=== PATIENT | female | born 1950 | race American Indian/Alaskan Native ===

== ENCOUNTER 2016-12-11 08:17 | Inpatient (IN) | payer MEDICARE ==
[2016-12-11] MEDS ORDERED: NACL 0.9% 1000 ML IV ONE (08:26)
[2016-12-11 09:03] LABS: Basophils % (Auto) 0.2 % (0.0-1.8); Eosinophils % (Auto) 0.4 % (0.0-4.3); Hematocrit 31.9 % (30.3-42.9); Hemoglobin 10.2 gm/dl (10.1-14.3); Mean Corpuscular HGB Conc 32 % (30-34); Mean Corpuscular Hemoglobin 30 pg (28-32); Mean Corpuscular Volume 94 fl (79-97); Platelet Count 224 K/mm3 (140-440); Red Blood Count 3.41 M/mm3 (3.65-5.03); Red Cell Distribution Width 15.5 % (13.2-15.2); White Blood Count 6.9 K/mm3 (4.5-11.0)
--- NOTE | 2016-12-11 09:06 | XRay Report ---
Single view chest: History: Shortness of breath. Findings: Borderline cardiomegaly. Trachea is midline. Pulmonary venous congestion. Bibasilar atelectasis/infiltrates. Normal CP angles. Impression: Probable early CHF.
[2016-12-11 09:22] LABS: Albumin 2.9 g/dL (3.9-5); Albumin/Globulin Ratio 0.8 %; Anion Gap 21 mmol/L; B-Hydroxybutyrate 1.1 mg/dL (0.2-2.8); BUN/Creatinine Ratio 14.44; Bilirubin,Indirect 1.4 mg/dL; Bilirubin,Total 7.4 mg/dL (0.1-1.2); Blood Urea Nitrogen 13 mg/dL (7-17); Calcium 8.8 mg/dL (8.4-10.2); Carbon Dioxide 19 mmol/L (22-30); Chloride 91.4 mmol/L (98-107); Potassium 4.4 mmol/L (3.6-5.0); Sodium 127 mmol/L (137-145); Total Protein 6.4 g/dL (6.3-8.2)
[2016-12-11 09:28] LABS: Glucose 623 mg/dL (65-100)
--- NOTE | 2016-12-11 09:54 | Emergency Department Report ---
HPI - General Time Seen by Provider: 12/11/16 08:24 - HPI HPI: Chief complaint: Altered mental status elevated blood sugar HPI: Patient is a 66-year-old female who was unable to unlock her door to go out to breakfast with her friend. Patient is an insulin-dependent diabetic and has been "a little dry "the last several days according to her friend. Patient states she drinks every other night and last night she had a pint of gin. Patient states she's never had hepatitis. Patient denies history of withdrawal but states occasionally she will get shaky when she doesn't drink. Patient denies polyuria but does complain of thirst. Patient denies chest pain, nausea , vomiting, diarrhea, abdominal pain, dysuria. Mode of arrival: EMS Source: Patient Began: Sometime during the night Duration: Unclear Context: Friend states when they got into her apartment there was a pot on the stove to heat on as well as contents in her purse scattered throughout the apartment and generalized disarray. Quality: Denies pain Severity: 0 out of 10 Improved with: Nothing Worsened with: Nothing Associated signs and symptoms: See above ED Past Medical Hx - Past Medical History Hx Hypertension: Yes Hx Psychiatric Treatment: Yes (depression) - Surgical History Additional Surgical History: hysterectomy. sweat gland surgery - Social History Smoking Status: Current Every Day Smoker Substance Use Type: Alcohol - Medications Home Medications: Home Medications Medication Instructions Recorded Confirmed Last Taken Type HYDROcodone/APAP 5-325 [[place] 1 - 2 each PO Q6HR PRN #14 tablet 04/28/15 Unknown Rx 5-325 mg TAB] predniSONE [Deltasone] 50 mg PO QDAY #5 tab 04/28/15 Unknown Rx ED Review of Systems ROS: Stated complaint: AMS/HYPERCOLYCEMIA Other details as noted in HPI Comment: Unobtainable due to pts medical conditions Physical Exam - Physical Exam Physical Exam: GENERAL: The patient is well-developed well-nourished . Patient has difficulty speaking secondary to missing lower teeth. HEENT: Normocephalic. Atraumatic. Extraocular motions are intact. Patient has moist mucous membranes. NECK: Supple. No meningitic signs are noted. There is no adenopathy noted. CHEST/LUNGS: Clear to auscultation. There is no respiratory distress noted. HEART/CARDIOVASCULAR: Regular. There is no tachycardia. There is no gallop rub or murmur. ABDOMEN: Abdomen is soft, nontender. Patient has normal bowel sounds. There is no abdominal distention. SKIN: There is no rash. There is no edema. There is no diaphoresis. NEURO: The patient is awake, alert, and oriented to self and situation but not time. The patient is cooperative. The patient has no focal neurologic deficits. MUSCULOSKELETAL: There is no tenderness or deformity. There is no limitation range of motion. There is no evidence of acute injury. ED Course - Reevaluation(s) Reevaluation #1: 12/11/16 10:19 Patient given 2 L of normal saline and 10 units of regular insulin. Discussed with admitting hospitalist who requests patient be placed on an insulin drip. Fluids were stopped secondary to questionable early CHF on patient's chest x- ray. Patient denies any shortness of breath. ED Medical Decision Making - Lab Data Result diagrams: 12/11/16 08:45 12/11/16 08:45 - EKG Data -: EKG Interpreted by Ok EKG shows normal: sinus rhythm Rate: normal (94) - EKG Data When compared to previous EKG there are: previous EKG unavailable Interpretation: nonspecific ST-T wave fely - Radiology Data Radiology results: report reviewed (CT head shows acute left maxillary sinusitis ) Critical care attestation.: If time is entered above; I have spent that time in minutes in the direct care of this critically ill patient, excluding procedure time. ED Disposition Clinical Impression: Hyperglycemia due to type 1 diabetes mellitus, Hepatitis, Alcohol abuse Altered mental status Qualifiers: Altered mental status type: transient alteration of awareness Qualified Code(s) : R40.4 - Transient alteration of awareness Maxillary sinusitis, acute Qualifiers: Recurrence: not specified as recurrent Qualified Code(s): J01.00 - Acute maxillary sinusitis, unspecified Disposition: OP ADMITTED IP TO THIS HOSP Is pt being admited?: Yes Does the pt Need Aspirin: No Condition: Stable Instructions: Diabetes Mellitus Type 2 in Adults (ED) Time of Disposition: 10:13 (admit to the hospitalist)
--- NOTE | 2016-12-11 10:12 | Cat Scan Report ---
CT scan of head without contrast: History: AMS. Findings: Ventricles are normal in size and midline in location. No evidence of acute ischemia, hemorrhage or mass. No extra axial fluid collection. Normal brainstem and cerebellum. Moderate volume loss. Air fluid level in left maxillary sinus. Impression: No acute intracranial abnormality. Acute left maxillary sinusitis.
[2016-12-11 10:44] LABS: Anion Gap 22 mmol/L; BUN/Creatinine Ratio 17.14; Blood Urea Nitrogen 12 mg/dL (7-17); Calcium 8.7 mg/dL (8.4-10.2); Carbon Dioxide 15 mmol/L (22-30); Chloride 95.6 mmol/L (98-107); Sodium 129 mmol/L (137-145)
[2016-12-11 10:49] LABS: Glucose 538 mg/dL (65-100)
[2016-12-11] MEDS ORDERED: NovoLIN R 100 UNITS in NACL 0.9% 99 ML IV SCH (11:00)
[2016-12-11 11:05] LABS: Phosphorous 3.7 mg/dL (2.5-4.5)
[2016-12-11] MEDS ORDERED: NACL ONE (11:13)
--- NOTE | 2016-12-11 12:31 | Cat Scan Report ---
CT scan of abdomen and pelvis with IV contrast: Compared to 12/27/14. History: Abdominal pain. Findings: Left lower lobe partial or segmental atelectasis or pneumonitis. No pleural or pericardial effusion. Intrahepatic duct dilatation with dilated common bile duct measuring up to 2 cm in the head of the pancreas. Dilated gallbladder with pericholecystic fluid and 1.2 cm calculus in gallbladder. Dilated pancreatic duct measuring up to 1.5 cm. Pseudocyst in the region of the head of pancreas if present cannot be entirely excluded. No peripancreatic stranding. Normal adrenals. Cyst in the left kidney measuring 2 cm. No calculi in the kidney parenchyma. No evidence of hydronephrosis. Decompressed urinary bladder with catheter in the bladder. No free intraperitoneal fluid or air. No evidence of adenopathy. Atherosclerotic calcified abdominal aorta without aneurysm. Gaseous colon with small volume stool in colon. Diverticulosis sigmoid colon. Normal appendix. Impression: Dilated pancreatic duct with cystic areas near the region of the pancreas which may be dilated pancreatic duct or pseudocyst. Dilated common bile duct with enlarged gallbladder. Single large calculus measuring 1.0 cm in diameter within the gallbladder with pericholecystic fluid. Diverticulosis sigmoid colon.
[2016-12-11] MEDS ORDERED: ATIVAN IV PRN (12:42)
--- NOTE | 2016-12-11 13:08 | History and Physical Report ---
History of Present Illness Date of examination: 12/11/16 Date of admission: 12/11/16 Chief complaint: Altered mental status from hyperglycemic hyperosmolar osmolar nonketotic syndrome History of present illness: Patient is a 66-year-old lady who has a history of diabetes mellitus hypertension alcohol and tobacco use disorder was found by EMS to have alteration in mental status has a friend who lives a few doors away from a apartment came to take her out for breakfast. They are chatted till 8 PM the previous night. However when her friend called, she found to have alteration in her mental status. Unable to open the door. EMS was called. They'll was forced and found the patient confused. Blood sugar at the scene was over 600. Patient was brought to the emergency department. The patient's friend who brought her to the emergency department stated there has no fever, no nausea no vomiting. She was very lucid the night before. However in the emergency department patient was found to be altered in her mental status. Ph was 7.300. Blood sugar was 589. Patient was commenced on normal saline and insulin drip. Admission was therefore requested. Past History Past Medical History: diabetes, hypertension Social history: smoking (smokes about a pack was elevated today for many years) , alcohol abuse (drinks alcohol) Family history: CAD, hypertension Medications and Allergies Allergies Allergy/AdvReac Type Severity Reaction Status Date / Time tramadol Allergy Rash Verified 04/28/15 16:55 Home Medications Medication Instructions Recorded Confirmed Last Taken Type No Known Home Medications [No 12/11/16 12/11/16 Unknown History Reported Home Medications] Active Meds: Active Medications Dextrose (D50w (25gm)) 0 ml IV PRN PRN PRN Reason: Hypoglycemia Enoxaparin Sodium (Lovenox) 40 mg SUB-Q QDAY ALEXANDRU Insulin Human Regular 100 (units/ Sodium Chloride) 100 mls @ 1 mls/hr IV TITR ALEXANDRU; 1 UNITS/HR PRN Reason: Protocol Lorazepam (Ativan) 4 mg IV Q15MIN PRN PRN Reason: CIWA-Ar >25 Stop: 12/16/16 12:43 Review of Systems ROS unobtainable: due to mental status Exam - Constitutional Vitals: Temp Pulse Resp BP Pulse Ox 98.6 F 80 17 141/83 97 12/11/16 08:30 12/11/16 11:30 12/11/16 11:30 12/11/16 11:30 12/11/16 11:30 General appearance: Present: no acute distress, well-nourished - EENT Eyes: Present: PERRL - Neck Neck: Present: supple, normal ROM - Respiratory Respiratory effort: normal Respiratory: bilateral: CTA - Cardiovascular Heart Sounds: Present: S1 & S2. Absent: rub, click - Extremities Extremities: pulses symmetrical, No edema Peripheral Pulses: within normal limits - Abdominal General gastrointestinal: Present: soft, non-tender, non-distended, normal bowel sounds Female genitourinary: Present: normal - Integumentary Integumentary: Present: clear, warm, dry - Musculoskeletal Musculoskeletal: gait normal, strength equal bilaterally - Psychiatric Psychiatric: appropriate mood/affect, intact judgment & insight - Neurologic Neurologic: CNII-XII intact, moves all extremities Results - Labs CBC & Chem 7: 12/14/16 05:44 12/12/16 10:19 Labs: Abnormal lab results 12/11/16 12/11/16 12/11/16 Range/Units 08:23 08:45 08:45 RBC 3.41 L (3.65-5.03) M/mm3 RDW 15.5 H (13.2-15.2) % [place] % (Auto) 10.7 H (0.0-7.3) % Lymph # 1.0 L (1.2-5.4) K/mm3 Seg Neutrophils % 74.3 H (40.0-70.0) % VBG pH (7.320-7.420) Sodium 127 L (137-145) mmol/L Chloride 91.4 L (98-107) mmol/L Carbon Dioxide 19 L (22-30) mmol/L Glucose 623 H* (65-100) mg/dL POC Glucose > 500 H (70-105) Total Bilirubin (0.1-1.2) mg/dL Direct Bilirubin (0-0.2) mg/dL AST (5-40) units/L ALT (7-56) units/L Alkaline Phosphatase (35-129) units/L Albumin (3.9-5) g/dL 12/11/16 12/11/16 12/11/16 Range/Units 08:45 08:45 10:17 RBC (3.65-5.03) M/mm3 RDW (13.2-15.2) % [place] % (Auto) (0.0-7.3) % Lymph # (1.2-5.4) K/mm3 Seg Neutrophils % (40.0-70.0) % VBG pH 7.300 L (7.320-7.420) Sodium 129 L (137-145) mmol/L Chloride 95.6 L (98-107) mmol/L Carbon Dioxide 15 L (22-30) mmol/L Glucose 538 H* (65-100) mg/dL POC Glucose (70-105) Total Bilirubin 7.4 H (0.1-1.2) mg/dL Direct Bilirubin 6.0 H (0-0.2) mg/dL AST 50 H (5-40) units/L ALT 76 H (7-56) units/L Alkaline Phosphatase 694 H (35-129) units/L Albumin 2.9 L (3.9-5) g/dL Assessment and Plan 1. Metabolic encephalopathy: Secondary to hyperglycemic hyperosmolar nonketotic state.: Commence patient on normal saline infusion. Insulin drip. Admits to ICU. 2. Hyperbilirubinemia. With marked increase in alkaline phosphatase. Obtain liver function test. CT scan of the abdomen and pelvis to rule out any obstructive condition. Of note the patient is jaundiced. 3. Metabolic acidosis 4. Alcohol abuse 5. Tobacco use disorder 6. Leukocytosis 7. DVT prophylaxis with Lovenox and GI with Protonix
[2016-12-11 13:12] LABS: Anion Gap 21 mmol/L; BUN/Creatinine Ratio 15.71; Blood Urea Nitrogen 11 mg/dL (7-17); Calcium 8.6 mg/dL (8.4-10.2); Carbon Dioxide 17 mmol/L (22-30); Glucose 310 mg/dL (65-100); Potassium 3.4 mmol/L (3.6-5.0); Sodium 133 mmol/L (137-145)
[2016-12-11] MEDS ORDERED: NOVOLOG SUB-Q ONE ×2 (14:11→15:29)
--- NOTE | 2016-12-11 14:12 | Admit Criteria Form ---
Admission Criteria Documentation: DIABETES Clinical Indications for Admission to Inpatient Care (Place 'X' for any and all applicable criteria): Admission is indicated by presence of ALL (if I & II) or ANY ONE (if III or IV) of the following (1)(2)(3)(4): [X ]I. Diabetes is uncontrolled as indicated by ANY ONE of the following: [ ]a) Diabetic ketoacidosis as indicated by ALL of the following (8): [ ]i) Hyperglycemia (eg, plasma glucose greater than 200 mg/ dL (11.1 mmol/L)) [ ]ii) Acidosis (eg, arterial pH less than 7.30, serum bicarbonate level less than 15 mEq/L (mmol/L)) [ ]iii) Moderate ketonuria or ketonemia [ ]b) Hyperglycemic hyperosmolar state as indicated by ALL of the following(9)(10): [ ]i) Neurologic dysfunction (eg, stupor, coma, hemiparesis , seizure)(13) [ ]ii) Plasma glucose greater than 600 mg/dL (33.3 mmol/L) [ ]iii) Serum osmolality greater than 320 mOsm/kg (mmol/kg) [X ]c) Severe signs or symptoms secondary to hyperglycemia indicated by ANY ONE of the following: [X ]i) Altered mental status(10) [ ]ii) Significant hypovolemia or dehydration [ ]iii) Intractable nausea or vomiting [ ]iv) Unexplained fever or severe infection [X ]v) Severe electrolyte abnormality (eg, hypokalemia, hyperkalemia, hypernatremia) [ X]II. Management at other levels of care (Also use Diabetes: Observation Care as appropriate) is not feasible because of ANY ONE of the following: [ ]a) Condition was not adequately corrected with treatment at other levels of care. [X ]b) Treatment at other levels of care is not appropriate because of condition severity (eg, hyperosmolar coma). [ ]III. Contraindications and/or Inappropriate clinical situations for Observational Care in patients with Diabetes, when ANY ONE of the following is required: [ ]a) Patient require specific diagnostic workup or therapeutic intervention 22 [ ]b) Patient with abnormal vital signs or altered mental status 23 [X ]IV. General contraindications and/or Inappropriate clinical situations for Observational Care in patients with Diabetes, when ANY ONE of the following is required: [ X]a) Prediction of prolongation of LOS based on ANY ONE of the following may be considered as a contraindication for observational care 2, 3, 4, 5, 6, 7, 8, 9, 10, 11 [X ]i) Age > 65 yrs. [ ]ii) Patient arriving by ambulance [ ]iii) Patient with high acuity [ ]iv) Patient requiring vital sign monitoring [ ]v) Patient on IV medication [ ]b) Systolic blood pressures 180mmHg 3,12 [ ]c) Patient with altered mental status including delirium and other alteration of consciousness, (3) [ ]d) Patient whose discharge disposition will be to a long-term home or rehabilitation home should not be managed in Emergency Department Observation Unit. CMS rule requires 3 days hospital stay before such placement.3,13 [ ]e) Patient with failure to thrive due to broad array of etiologies 3,16,17 [ ]f) Inability to ambulate 3,14 Extended stay beyond goal length of stay may be needed for(3)(20): [ ]a) Treatment of precipitating causes [ ]b) Development of hypoglycemia [ ]c) Complications of treatment [ ]d) Complications of decompensated diabetes (eg, acute gastric dilatation, persistent metabolic or neurologic derangement) [ ]e) Active Comorbidities [ ]f) Older patients( 65 years or older) The original [employer] content created by [employer] has been revised. The portions of the content which have been revised are identified through the use of italic text or in bold,and [facility] has neither reviewed nor approved the modified material. All other unmodified content is copyright [facility]. Please see references footnoted in the original [facility] edition 2016 Admission Criteria Met: Yes
[2016-12-11] MEDS ORDERED: NOVOLOG SUB-Q PRN ×2 (14:14→14:20)
[2016-12-11 14:26] LABS: Albumin 2.6 g/dL (3.9-5); Albumin/Globulin Ratio 0.7 %; Bilirubin,Direct 5.8 mg/dL (0-0.2); Bilirubin,Indirect 1.9 mg/dL; Bilirubin,Total 7.7 mg/dL (0.1-1.2); Magnesium 1.9 mg/dL (1.7-2.3); Phosphorous 3.6 mg/dL (2.5-4.5); Total Protein 6.5 g/dL (6.3-8.2)
[2016-12-11 14:54] LABS: Anion Gap 19 mmol/L; Blood Urea Nitrogen 10 mg/dL (7-17); Calcium 8.9 mg/dL (8.4-10.2); Carbon Dioxide 22 mmol/L (22-30); Chloride 99.7 mmol/L (98-107); Glucose 263 mg/dL (65-100); Potassium 3.6 mmol/L (3.6-5.0); Sodium 137 mmol/L (137-145)
[2016-12-11] MEDS: LOVENOX SUB-Q SCH (19:32)
[2016-12-11 19:40] LABS: BUN/Creatinine Ratio 18.33; Blood Urea Nitrogen 11 mg/dL (7-17); Calcium 8.9 mg/dL (8.4-10.2); Carbon Dioxide 19 mmol/L (22-30); Glucose 318 mg/dL (65-100)
[2016-12-11 19:41] LABS: Anion Gap 20 mmol/L; Chloride 98.1 mmol/L (98-107); Potassium 3.8 mmol/L (3.6-5.0); Sodium 133 mmol/L (137-145)
[2016-12-11] MEDS: LEVEMIR SUB-Q SCH (22:05)
[2016-12-11] MEDS: NOVOLOG SUB-Q SCH (22:06)
[2016-12-12 05:34] LABS: Basophils % (Auto) 0.4 % (0.0-1.8); Eosinophils % (Auto) 0.1 % (0.0-4.3); Hematocrit 30.3 % (30.3-42.9); Mean Corpuscular HGB Conc 33 % (30-34); Mean Corpuscular Hemoglobin 30 pg (28-32); Mean Corpuscular Volume 91 fl (79-97); Platelet Count 256 K/mm3 (140-440); Red Blood Count 3.34 M/mm3 (3.65-5.03); White Blood Count 7.6 K/mm3 (4.5-11.0)
[2016-12-12 05:46] LABS: INR 1.1 (0.87-1.13)
[2016-12-12 05:54] LABS: Anion Gap 19 mmol/L; Blood Urea Nitrogen 13 mg/dL (7-17); Carbon Dioxide 21 mmol/L (22-30); Chloride 103.6 mmol/L (98-107); Potassium 3.2 mmol/L (3.6-5.0)
[2016-12-12 05:59] LABS: Glucose 39 mg/dL (65-100); Sodium 140 mmol/L (137-145)
[2016-12-12] MEDS: D50W (25GM) IV PRN (06:32)
[2016-12-12] MEDS: NOVOLOG SUB-Q SCH ×5 (10:27→21:18)
[2016-12-12] MEDS: LOVENOX SUB-Q SCH (10:28)
[2016-12-12 11:00] LABS: Anion Gap 23 mmol/L; Blood Urea Nitrogen 14 mg/dL (7-17); Calcium 8.8 mg/dL (8.4-10.2); Carbon Dioxide 20 mmol/L (22-30); Chloride 97.4 mmol/L (98-107); Glucose 407 mg/dL (65-100); Sodium 136 mmol/L (137-145)
[2016-12-12 11:06] LABS: Potassium 4.3 mmol/L (3.6-5.0)
[2016-12-12] MEDS ORDERED: PNEUMOVAX 23 IM ONE (12:00)
[2016-12-12] MEDS ORDERED: FLUARIX QUAD 2016-2017(36 MOS+) IM ONE (12:00)
[2016-12-12 13:53] LABS: Albumin 2.7 g/dL (3.9-5); Albumin/Globulin Ratio 0.8 %; Bilirubin,Direct 6.5 mg/dL (0-0.2); Bilirubin,Indirect 1.9 mg/dL; Bilirubin,Total 8.4 mg/dL (0.1-1.2); Total Protein 6.3 g/dL (6.3-8.2)
[2016-12-12] MEDS: LEVEMIR SUB-Q SCH (21:18)
[2016-12-13 06:42] LABS: Basophils % (Auto) 0.6 % (0.0-1.8); Eosinophils % (Auto) 0.9 % (0.0-4.3); Hematocrit 29.1 % (30.3-42.9); Hemoglobin 9.6 gm/dl (10.1-14.3); Mean Corpuscular HGB Conc 33 % (30-34); Mean Corpuscular Hemoglobin 30 pg (28-32); Mean Corpuscular Volume 90 fl (79-97); Platelet Count 239 K/mm3 (140-440); Red Blood Count 3.21 M/mm3 (3.65-5.03); White Blood Count 7.1 K/mm3 (4.5-11.0)
[2016-12-13] MEDS: LOVENOX SUB-Q SCH (09:33)
[2016-12-13] MEDS: NOVOLOG SUB-Q SCH ×4 (09:33→22:10)
--- NOTE | 2016-12-13 11:55 | Progress Note ---
Assessment and Plan 1. HHNS resolved with insulin drip. 2. Metabolic encephalopathy: Resolving. Multocida and interactive. 3. Hyperbilirubinemia. Likely secondary to biliary obstruction and possibly from a pancreatic cyst or a pancreatic mass. Discussed with the clothes shaker Dr Shetty who agreeed with MRCP. He will see patient in consult. Input appreciated. 4. Metabolic acidosis 5. Alcohol abuse 6. Tobacco use disorder 7. Leukocytosis 8. DVT prophylaxis with Lovenox and GI with Protonix Subjective Date of service: 12/13/16 Principal diagnosis: Altered mental status Interval history: Patient was inadvertently omitted by me yesterday (11/11/16) and therefore was not seen. Objective - Constitutional Vitals: Vital Signs - 12hr 12/13/16 12/13/16 12/13/16 00:00 02:00 06:46 Temperature 98.4 F 97.5 F L Pulse Rate 90 Pulse Rate [ Left Radial] Pulse Rate [ 97 H 92 H Right Radial] Respiratory 20 18 Rate Blood Pressure 93/53 97/53 [Left Arm] O2 Sat by Pulse 93 97 Oximetry 12/13/16 12/13/16 08:50 10:00 Temperature 99.3 F Pulse Rate 101 H Pulse Rate [ 107 H Left Radial] Pulse Rate [ Right Radial] Respiratory 18 Rate Blood Pressure 124/65 [Left Arm] O2 Sat by Pulse 93 Oximetry General appearance: Present: no acute distress - EENT Eyes: PERRL Ears: bilateral: normal - Neck Neck: supple - Respiratory Respiratory: bilateral: CTA - Breasts Breasts: normal - Cardiovascular Rhythm: regular Heart Sounds: Present: S1 & S2 Extremities: no ischemia - Gastrointestinal General gastrointestinal: Present: soft, non-tender, non-distended - Integumentary Integumentary: clear, warm, dry - Musculoskeletal Musculoskeletal: strength equal bilaterally - Neurologic Neurologic: CNII-XII intact - Psychiatric Psychiatric: appropriate mood/affect - Labs CBC & Chem 7: 12/14/16 05:44 12/12/16 10:19 Labs: Abnormal lab results 12/12/16 12/12/16 12/12/16 Range/Units 06:27 07:28 10:19 RBC (3.65-5.03) M/mm3 Hgb (10.1-14.3) gm/dl Hct (30.3-42.9) % [place] % (Auto) (0.0-7.3) % POC Glucose 55 L 302 H (70-105) Total Bilirubin 8.4 H (0.1-1.2) mg/dL Direct Bilirubin 6.5 H (0-0.2) mg/dL AST 87 H (5-40) units/L ALT 73 H (7-56) units/L Alkaline Phosphatase 669 H (35-129) units/L Albumin 2.7 L (3.9-5) g/dL 12/12/16 12/12/16 12/12/16 Range/Units 11:53 15:04 17:39 RBC (3.65-5.03) M/mm3 Hgb (10.1-14.3) gm/dl Hct (30.3-42.9) % [place] % (Auto) (0.0-7.3) % POC Glucose 324 H 190 H 234 H (70-105) Total Bilirubin (0.1-1.2) mg/dL Direct Bilirubin (0-0.2) mg/dL AST (5-40) units/L ALT (7-56) units/L Alkaline Phosphatase (35-129) units/L Albumin (3.9-5) g/dL 12/12/16 12/13/16 Range/Units 20:55 05:39 RBC 3.21 L (3.65-5.03) M/mm3 Hgb 9.6 L (10.1-14.3) gm/dl Hct 29.1 L (30.3-42.9) % [place] % (Auto) 11.3 H (0.0-7.3) % POC Glucose 248 H (70-105) Total Bilirubin (0.1-1.2) mg/dL Direct Bilirubin (0-0.2) mg/dL AST (5-40) units/L ALT (7-56) units/L Alkaline Phosphatase (35-129) units/L Albumin (3.9-5) g/dL
[2016-12-13] MEDS ORDERED: NACL 0.9% 1000 ML 1,000 ML IV ONE (12:21)
[2016-12-13 12:59] LABS: Bacteria,Urine 2+ /HPF (Negative); Bilirubin,Urine SM (Negative); Blood,Urine NEG (Negative); Ketones,Urine NEG (Negative); Leukocyte Esterase,Urine SM (Negative); Nitrite,Urine POS (Negative); Protein,Urine <15 mg/dL mg/dL (Negative); RBC,Urine < 1.0 /HPF (0.0-6.0)
[2016-12-13] MEDS ORDERED: HABITROL TD PRN (13:11)
--- NOTE | 2016-12-13 13:11 | Progress Note ---
Assessment and Plan Assessment and plan: 1. Hyperglycemia, uncontrolled DM continue insulins 2. Tobacco abuse nicotine patch, counseled for 10 minutes about cessation 3. Etoh abuse thiamine, folate, IVFluids, patient was counseled 4. Dehydration IVF Dark urine; UA is negative; likely 2/2 dehydration History Interval history: c/o of thirst, exhaustion and dark urine Hospitalist Physical - Physical exam Narrative exam: General: Patient appears frail HEENT: MMM, EOMI cardiac: S1-S2 heard lungs: clear to auscultation, abdomen: soft, nontender, nondistended bowel sounds positive extremities: no edema clubbing or cyanosis Skin: no rash or lesion Neuro: no focal deficit Psych: appropriate behavior and mood, cognition intact - Constitutional Vitals: Temp Pulse Resp BP Pulse Ox 99.3 F 101 H 18 124/65 93 12/13/16 08:50 12/13/16 10:00 12/13/16 08:50 12/13/16 08:50 12/13/16 08:50 General appearance: Present: no acute distress, well-nourished Results - Labs CBC & Chem 7: 12/13/16 05:39 12/12/16 10:19 Labs: Laboratory Last Values WBC 7.1 K/mm3 (4.5-11.0) 12/13/16 05:39 RBC 3.21 M/mm3 (3.65-5.03) L 12/13/16 05:39 Hgb 9.6 gm/dl (10.1-14.3) L 12/13/16 05:39 Hct 29.1 % (30.3-42.9) L 12/13/16 05:39 MCV 90 fl (79-97) 12/13/16 05:39 MCH 30 pg (28-32) 12/13/16 05:39 MCHC 33 % (30-34) 12/13/16 05:39 RDW 15.0 % (13.2-15.2) 12/13/16 05:39 Plt Count 239 K/mm3 (140-440) 12/13/16 05:39 Lymph % (Auto) 25.8 % (13.4-35.0) 12/13/16 05:39 [place] % (Auto) 11.3 % (0.0-7.3) H 12/13/16 05:39 Eos % (Auto) 0.9 % (0.0-4.3) 12/13/16 05:39 Baso % (Auto) 0.6 % (0.0-1.8) 12/13/16 05:39 Lymph # 1.8 K/mm3 (1.2-5.4) 12/13/16 05:39 [place] # 0.8 K/mm3 (0.0-0.8) 12/13/16 05:39 Eos # 0.1 K/mm3 (0.0-0.4) 12/13/16 05:39 Baso # 0.0 K/mm3 (0.0-0.1) 12/13/16 05:39 Seg Neutrophils % 61.4 % (40.0-70.0) 12/13/16 05:39 Seg Neutrophils # 4.4 K/mm3 (1.8-7.7) 12/13/16 05:39 PT 14.1 Sec. (12.2-14.9) 12/12/16 05:16 INR 1.10 (0.87-1.13) 12/12/16 05:16 VBG pH 7.300 (7.320-7.420) L 12/11/16 08:45 Sodium 136 mmol/L (137-145) L 12/12/16 10:19 Potassium 4.3 mmol/L (3.6-5.0) D 12/12/16 10:19 Chloride 97.4 mmol/L (98-107) L 12/12/16 10:19 Carbon Dioxide 20 mmol/L (22-30) L 12/12/16 10:19 Anion Gap 23 mmol/L 12/12/16 10:19 BUN 14 mg/dL (7-17) 12/12/16 10:19 Creatinine 0.4 mg/dL (0.7-1.2) L 12/12/16 10:19 Estimated GFR > 60 ml/min 12/12/16 10:19 BUN/Creatinine Ratio 35.00 % 12/12/16 10:19 Glucose 407 mg/dL (65-100) H 12/12/16 10:19 POC Glucose 218 (70-105) H 12/13/16 12:14 Calcium 8.8 mg/dL (8.4-10.2) 12/12/16 10:19 Phosphorus 3.6 mg/dL (2.5-4.5) 12/11/16 13:22 Magnesium 1.9 mg/dL (1.7-2.3) 12/11/16 13:22 Total Bilirubin 8.4 mg/dL (0.1-1.2) H 12/12/16 10:19 Direct Bilirubin 6.5 mg/dL (0-0.2) H 12/12/16 10:19 Indirect Bilirubin 1.9 mg/dL 12/12/16 10:19 AST 87 units/L (5-40) H 12/12/16 10:19 ALT 73 units/L (7-56) H 12/12/16 10:19 Alkaline Phosphatase 669 units/L (35-129) H 12/12/16 10:19 Ammonia 30.0 umol/L (25-60) 12/11/16 09:32 Troponin T < 0.010 ng/mL (0.00-0.029) 12/11/16 08:45 Total Protein 6.3 g/dL (6.3-8.2) 12/12/16 10:19 Albumin 2.7 g/dL (3.9-5) L 12/12/16 10:19 Albumin/Globulin Ratio 0.8 % 12/12/16 10:19 Urine Color Denisa (Yellow) 12/13/16 12:25 Urine Turbidity Clear (Clear) 12/13/16 12:25 Urine pH 6.0 (5.0-7.0) 12/13/16 12:25 Ur Specific [place] 1.006 (1.003-1.030) 12/13/16 12:25 Urine Protein <15 mg/dl mg/dL (Negative) 12/13/16 12:25 Urine Glucose (UA) >=500 mg/dL (Negative) 12/13/16 12:25 Urine Ketones Neg mg/dL (Negative) 12/13/16 12:25 Urine Blood Neg (Negative) 12/13/16 12:25 Urine Nitrite Pos (Negative) 12/13/16 12:25 Urine Bilirubin Sm (Negative) 12/13/16 12:25 Urine Ictotest Positive (Negative) 12/13/16 12:25 Urine Urobilinogen 2.0 mg/dL (<2.0) 12/13/16 12:25 Ur Leukocyte Esterase Sm (Negative) 12/13/16 12:25 Urine WBC (Auto) 4.0 /HPF (0.0-6.0) 12/13/16 12:25 Urine RBC (Auto) < 1.0 /HPF (0.0-6.0) 12/13/16 12:25 Urine Bacteria (Auto) 2+ /HPF (Negative) 12/13/16 12:25 Plasma/Serum Alcohol < 0.01 gm% (0-0.07) 12/11/16 09:32 Ketones 1.1 mg/dL (0.2-2.8) 12/11/16 08:45
[2016-12-13 20:35] LABS: Albumin 2.2 g/dL (3.9-5); Albumin/Globulin Ratio 0.6 %; Bilirubin,Direct 6.3 mg/dL (0-0.2); Bilirubin,Indirect 2.3 mg/dL; Bilirubin,Total 8.6 mg/dL (0.1-1.2); Total Protein 5.6 g/dL (6.3-8.2)
[2016-12-13] MEDS: LEVEMIR SUB-Q SCH (22:45)
[2016-12-14 07:32] LABS: Hematocrit 31.1 % (30.3-42.9); Mean Corpuscular HGB Conc 32 % (30-34); Mean Corpuscular Hemoglobin 30 pg (28-32); Mean Corpuscular Volume 94 fl (79-97); Platelet Count 263 K/mm3 (140-440); White Blood Count 9.2 K/mm3 (4.5-11.0)
[2016-12-14 08:13] LABS: Blastocytes % (Manual) 0 %
[2016-12-14 08:14] LABS: Diff Status Complete; Poikilocytosis 1+; Target Cells 1+
[2016-12-14] MEDS: NOVOLOG SUB-Q SCH ×4 (09:51→21:58)
[2016-12-14] MEDS: VITAMIN B-1 PO SCH (09:52)
[2016-12-14] MEDS: LOVENOX SUB-Q SCH (09:52)
[2016-12-14] MEDS: FOLVITE PO SCH (09:52)
--- NOTE | 2016-12-14 12:57 | Consultation ---
History of Present Illness Consult date: 12/14/16 Reason for consult: gallstones Chief complaint: Painless jaundice. - History of present illness History of present illness: 66 year old female admitted with metabolic encephalopathy, metabolic acidosis. He was noticed to be jaundiced. Patient now feeling better but reports that she hasn't had any abdominal pain. She noticed her daughter urine a few days ago. Past History Past Medical History: diabetes, hypertension Past Surgical History: appendectomy, hysterectomy, Other (tubal ) Social history: smoking (smokes about a pack was elevated today for many years) , alcohol abuse (drinks alcohol) Family history: CAD, hypertension Medications and Allergies Allergies Allergy/AdvReac Type Severity Reaction Status Date / Time tramadol Allergy Rash Verified 04/28/15 16:55 Home Medications Medication Instructions Recorded Confirmed Last Taken Type No Known Home Medications [No 12/11/16 12/11/16 Unknown History Reported Home Medications] Active Meds: Active Medications Dextrose (D50w (25gm)) 0 ml IV PRN PRN PRN Reason: Hypoglycemia Last Admin: 12/12/16 06:32 Dose: 50 ml Enoxaparin Sodium (Lovenox) 40 mg SUB-Q QDAY [facility] Last Admin: 12/14/16 09:52 Dose: 40 mg Folic Acid (Folvite) 1 mg PO QDAY [facility] [place] Last Admin: 12/14/16 09:52 Dose: 1 mg Insulin Aspart (Novolog) 0 units SUB-Q ACHS [facility] [place] PRN Reason: Protocol Last Admin: 12/14/16 09:51 Dose: 3 units Insulin Detemir (Levemir) 30 units SUB-Q QHS [facility] [place] Last Admin: 12/13/16 22:45 Dose: 30 units Lorazepam (Ativan) 4 mg IV Q15MIN PRN PRN Reason: CIWA-Ar >25 Stop: 12/16/16 12:43 Nicotine (Habitrol) 14 mg TD QDAY PRN PRN Reason: nicotine withdrawal Thiamine HCl (Vitamin B-1) 100 mg PO QDAY [facility] [place] Last Admin: 12/14/16 09:52 Dose: 100 mg Review of Systems All systems: negative (present complaint.) Exam Vital Signs BP 99/75 12/11/16 08:21 - General physical appearance Positive: well developed, well nourished, no distress - Eyes Positive: PERRL, normal occular movement, icteric - ENT Positive: normal pinna, normal nares, normal mucosa, no hearing loss, no congestion - Neck Positive: no masses, no bruits, trachea midline, no venous distension - Respiratory Positive: normal expansion, normal respiratory effort, clear to auscultation - Cardiovascular Rhythm: regular Heart Sounds: Present: S1 & S2. Absent: rub, click - Extremities Extremities: No edema - Breasts Breasts: deferred - Abdomen Abdomen: Present: soft, bowel sounds normal. Absent: tender - Genitourinary Female Genitourinary: other (Guerrero in place with very dark urine.) - Integumentary no rash, no growths - Neurologic Neurologic: alert and oriented to time, place and person, motor strength and sensation are grossly intact - Musculoskeletal normal gait, normal posture - Psychiatric Psychiatric: appropriate mood/affect, intact judgment & insight, memory intact, cooperative Results - Labs 12/14/16 05:44 12/12/16 10:19 Abnormal lab results 12/13/16 12/13/16 12/13/16 Range/Units 05:12 17:04 19:59 RBC (3.65-5.03) M/mm3 Hgb (10.1-14.3) gm/dl POC Glucose 172 H 207 H (70-105) Total Bilirubin 8.6 H (0.1-1.2) mg/dL Direct Bilirubin 6.3 H (0-0.2) mg/dL AST 109 H (5-40) units/L ALT 78 H (7-56) units/L Alkaline Phosphatase 680 H (35-129) units/L Total Protein 5.6 L (6.3-8.2) g/dL Albumin 2.2 L (3.9-5) g/dL 12/13/16 12/13/16 12/14/16 Range/Units 21:48 22:16 05:31 RBC (3.65-5.03) M/mm3 Hgb (10.1-14.3) gm/dl POC Glucose 188 H 180 H 44 L (70-105) Total Bilirubin (0.1-1.2) mg/dL Direct Bilirubin (0-0.2) mg/dL AST (5-40) units/L ALT (7-56) units/L Alkaline Phosphatase (35-129) units/L Total Protein (6.3-8.2) g/dL Albumin (3.9-5) g/dL 12/14/16 12/14/16 Range/Units 05:44 06:00 RBC 3.30 L (3.65-5.03) M/mm3 Hgb 10.0 L (10.1-14.3) gm/dl POC Glucose 109 H (70-105) Total Bilirubin (0.1-1.2) mg/dL Direct Bilirubin (0-0.2) mg/dL AST (5-40) units/L ALT (7-56) units/L Alkaline Phosphatase (35-129) units/L Total Protein (6.3-8.2) g/dL Albumin (3.9-5) g/dL Diabetes panel 12/13/16 Range/Units 19:59 AST 109 H (5-40) units/L ALT 78 H (7-56) units/L Alkaline Phosphatase 680 H (35-129) units/L Total Protein 5.6 L (6.3-8.2) g/dL Albumin 2.2 L (3.9-5) g/dL Calcium panel 12/13/16 Range/Units 19:59 Albumin 2.2 L (3.9-5) g/dL Adrenal panel 12/13/16 Range/Units 19:59 Total Bilirubin 8.6 H (0.1-1.2) mg/dL AST 109 H (5-40) units/L ALT 78 H (7-56) units/L Alkaline Phosphatase 680 H (35-129) units/L Total Protein 5.6 L (6.3-8.2) g/dL Albumin 2.2 L (3.9-5) g/dL - Imaging CT scan - abdomen: report reviewed Assessment and Plan Impression: #1. Painless jaundice. 2. Diabetes. 3. Hypertension. 4. Dilated pancreatic duct. I'm concerned about the painless jaundice with a dilated pancreatic duct could be caused by tumor in the ampulla. Recommendations: MRCP. Symptomatologies consult.
--- NOTE | 2016-12-14 19:18 | Progress Note ---
Assessment and Plan 1. Hyperglycemic hyperosmolar nonketotic state: resolved with insulin drip. 2. Biliary obstruction: We will follow up with result of MRCP. 3. Diabetes mellitus: continue sliding scale insulin. Consistent carbohydrate diet. 4. Hyperbilirubinemia. Likely secondary to biliary obstruction and possibly from a pancreatic cyst or a pancreatic mass. Discussed with the bellows charger assembler Dr Shetty who agreeed with MRCP. He will see patient in consult. Input appreciated. 5. Alcohol abuse: Alcohol cessation counseling done. Continue with [facility] protocol 6. Tobacco use disorder: Tobacco cessation counseling was done 7. DVT prophylaxis with Lovenox and GI with Protonix Subjective Date of service: 12/14/16 Principal diagnosis: Altered mental status Interval history: Complains of minimal occasional epigastric pain after eating. Very interactive with very lucid mental status. Objective - Constitutional Vitals: Vital Signs - 12hr 12/14/16 12/14/16 12/14/16 08:30 12:19 12:58 Temperature 99.0 F 98.2 F Pulse Rate 87 Pulse Rate [ 104 H Left Radial] Pulse Rate [ 94 H Right Radial] Respiratory 18 18 Rate Blood Pressure 129/72 [Left Arm] Blood Pressure 143/67 [Right Arm] O2 Sat by Pulse 98 95 Oximetry 12/14/16 16:19 Temperature 100.7 F H Pulse Rate Pulse Rate [ Left Radial] Pulse Rate [ 97 H Right Radial] Respiratory 18 Rate Blood Pressure [Left Arm] Blood Pressure 120/62 [Right Arm] O2 Sat by Pulse 93 Oximetry General appearance: Present: no acute distress, well-nourished - EENT Eyes: PERRL, EOM intact ENT: clear oral mucosa, oropharyngeal erythema Ears: bilateral: normal - Neck Neck: supple, normal ROM - Respiratory Respiratory effort: normal Respiratory: bilateral: CTA - Cardiovascular Rhythm: regular Heart Sounds: Present: S1 & S2. Absent: gallop, rub Extremities: pulses intact, No edema, normal color, Full ROM - Gastrointestinal General gastrointestinal: Present: soft, non-tender, non-distended, normal bowel sounds - Integumentary Integumentary: clear, warm, dry - Musculoskeletal Musculoskeletal: 1, strength equal bilaterally - Neurologic Neurologic: moves all extremities - Psychiatric Psychiatric: memory intact, appropriate mood/affect, intact judgment & insight - Labs CBC & Chem 7: 12/14/16 05:44 12/12/16 10:19 Labs: Abnormal lab results 12/13/16 12/13/16 12/13/16 Range/Units 05:12 19:59 21:48 RBC (3.65-5.03) M/mm3 Hgb (10.1-14.3) gm/dl POC Glucose 172 H 188 H (70-105) Total Bilirubin 8.6 H (0.1-1.2) mg/dL Direct Bilirubin 6.3 H (0-0.2) mg/dL AST 109 H (5-40) units/L ALT 78 H (7-56) units/L Alkaline Phosphatase 680 H (35-129) units/L Total Protein 5.6 L (6.3-8.2) g/dL Albumin 2.2 L (3.9-5) g/dL 12/13/16 12/14/16 12/14/16 Range/Units 22:16 05:31 05:44 RBC 3.30 L (3.65-5.03) M/mm3 Hgb 10.0 L (10.1-14.3) gm/dl POC Glucose 180 H 44 L (70-105) Total Bilirubin (0.1-1.2) mg/dL Direct Bilirubin (0-0.2) mg/dL AST (5-40) units/L ALT (7-56) units/L Alkaline Phosphatase (35-129) units/L Total Protein (6.3-8.2) g/dL Albumin (3.9-5) g/dL 12/14/16 12/14/16 12/14/16 Range/Units 06:00 08:28 12:17 RBC (3.65-5.03) M/mm3 Hgb (10.1-14.3) gm/dl POC Glucose 109 H 183 H 237 H (70-105) Total Bilirubin (0.1-1.2) mg/dL Direct Bilirubin (0-0.2) mg/dL AST (5-40) units/L ALT (7-56) units/L Alkaline Phosphatase (35-129) units/L Total Protein (6.3-8.2) g/dL Albumin (3.9-5) g/dL 12/14/16 Range/Units 16:17 RBC (3.65-5.03) M/mm3 Hgb (10.1-14.3) gm/dl POC Glucose 144 H (70-105) Total Bilirubin (0.1-1.2) mg/dL Direct Bilirubin (0-0.2) mg/dL AST (5-40) units/L ALT (7-56) units/L Alkaline Phosphatase (35-129) units/L Total Protein (6.3-8.2) g/dL Albumin (3.9-5) g/dL
[2016-12-14] MEDS: LEVEMIR SUB-Q SCH (21:59)
[2016-12-15] MEDS ORDERED: VANCOMYCIN PHARMACY TO DOSE IV SCH ×2 (03:00→18:00)
[2016-12-15] MEDS ORDERED: ZOSYN/NS 3.375GM/50ML 3.375 GM/50 ML BAG IV SCH (03:00)
[2016-12-15] MEDS: NACL 0.9% 1000 ML 1,000 ML IV SCH ×3 (03:30→19:37)
[2016-12-15] MEDS ORDERED: VANCOMYCIN/NS 1 GM/250 ML 1 GM/250 ML BAG IV ONE (04:00)
[2016-12-15] MEDS: D50W (25GM) IV PRN ×2 (04:03→07:05)
[2016-12-15 04:34] LABS: INR 1.13 (0.87-1.13)
[2016-12-15 04:36] LABS: Alanine Aminotransferase 70 units/L (7-56); Albumin 2.4 g/dL (3.9-5); Albumin/Globulin Ratio 0.8 %; Alkaline Phosphatase 681 units/L (35-129); Anion Gap 17 mmol/L; Bilirubin,Total 10.3 mg/dL (0.1-1.2); Blood Urea Nitrogen 9 mg/dL (7-17); Calcium 8.6 mg/dL (8.4-10.2); Carbon Dioxide 21 mmol/L (22-30); Chloride 99.1 mmol/L (98-107); Potassium 3.4 mmol/L (3.6-5.0); Sodium 134 mmol/L (137-145); Total Protein 5.6 g/dL (6.3-8.2)
[2016-12-15 04:50] LABS: Hematocrit 27.6 % (30.3-42.9); Mean Corpuscular HGB Conc 33 % (30-34); Mean Corpuscular Hemoglobin 30 pg (28-32); Mean Corpuscular Volume 92 fl (79-97); Platelet Count 267 K/mm3 (140-440); Red Blood Count 3.01 M/mm3 (3.65-5.03); Red Cell Distribution Width 14.6 % (13.2-15.2); White Blood Count 7.4 K/mm3 (4.5-11.0)
[2016-12-15 04:52] LABS: Glucose 24 mg/dL (65-100)
[2016-12-15 06:26] LABS: Basophils % (Manual) 0 % (0.0-1.8); Blastocytes % (Manual) 0 %; Eosinophils % (Manual) 0 % (0.0-4.3)
[2016-12-15 06:27] LABS: Diff Status Complete; Hypochromasia 1+; Platelet Estimate Consistent w Auto; Poikilocytosis 1+; Target Cells 1+
--- NOTE | 2016-12-15 06:50 | Gastroenterology Consultation ---
History of Present Illness - Reason for Consult Consult date: 12/15/16 Painless jaundice, abnormal CT scan, abnormal LFT's Requesting physician: RIGOBERTO MURPHY - History of Present Illness Asked to see this 66yo woman who was admitted with hyperglycemia and altered mental status on 12/11. At that time, she was noted to have evidence of hyperbilirubinemia w/o abdominal pain. This prompted a CT A/P, which revealed a dilated CBD to 2cm at the level of the pancreatic head, as well as dilation of the pancreatic duct to 1.5cm. +dark urine. No nausea/vomiting, fevers, chills. No CP/SOB. Past History Past Medical History: diabetes, hypertension Past Surgical History: appendectomy, hysterectomy, Other (tubal ) Social history: smoking (smokes about a pack was elevated today for many years) , alcohol abuse (drinks alcohol) Family history: CAD, hypertension Medications and Allergies Allergies Allergy/AdvReac Type Severity Reaction Status Date / Time tramadol Allergy Rash Verified 04/28/15 16:55 Home Medications Medication Instructions Recorded Confirmed Last Taken Type No Known Home Medications [No 12/11/16 12/11/16 Unknown History Reported Home Medications] Active Meds: Active Medications Dextrose (D50w (25gm)) 0 ml IV PRN PRN PRN Reason: Hypoglycemia Last Admin: 12/15/16 04:03 Dose: 50 ml Enoxaparin Sodium (Lovenox) 40 mg SUB-Q QDAY [facility] Last Admin: 12/14/16 09:52 Dose: 40 mg Folic Acid (Folvite) 1 mg PO QDAY [facility] Last Admin: 12/14/16 09:52 Dose: 1 mg Sodium Chloride (Nacl 0.9% 1000 Ml) 1,000 mls @ 100 mls/hr IV DIRECT [facility] Stop: 12/15/16 22:59 Last Admin: 12/15/16 03:30 Dose: 100 mls/hr Piperacillin Sod/Tazobactam Sod (Zosyn/Ns 3.375gm/50ml) 3.375 gm in 50 mls @ 100 mls/hr IV Q8H [facility] Last Admin: 12/15/16 03:56 Dose: 100 mls/hr Vancomycin HCl (Vancomycin/Ns 1 Gm/250 Ml) 1 gm in 250 mls @ 166.667 mls/hr IV Q24H [facility] Insulin Aspart (Novolog) 0 units SUB-Q ACHS [facility] PRN Reason: Protocol Last Admin: 12/14/16 21:58 Dose: 6 units Insulin Detemir (Levemir) 30 units SUB-Q QHS [facility] Last Admin: 12/14/16 21:59 Dose: 30 units Lorazepam (Ativan) 4 mg IV Q15MIN PRN PRN Reason: CIWA-Ar >25 Stop: 12/16/16 12:43 Nicotine (Habitrol) 14 mg TD QDAY PRN PRN Reason: nicotine withdrawal Last Admin: 12/14/16 18:02 Dose: 14 mg Thiamine HCl (Vitamin B-1) 100 mg PO QDAY [facility] Last Admin: 12/14/16 09:52 Dose: 100 mg Vancomycin HCl (Vancomycin Pharmacy To Dose) 1 each IV PKCONSULT [facility] PRN Reason: Protocol Review of Systems - Review of Systems All systems: negative (jaundice, prior confusion) Exam - Constitutional Vital Signs: Temp Pulse Resp BP Pulse Ox 97.5 F L 95 H 20 100/53 98 12/15/16 06:38 12/15/16 06:38 12/15/16 06:38 12/15/16 06:38 12/15/16 06:38 General appearance: no acute distress, other (icteric) - EENT Eyes: scleral icterus - Neck Neck: supple - Respiratory Respiratory: bilateral: CTA - Cardiovascular Rhythm: regular Heart Sounds: Present: S1 & S2 Extremities: No edema - Gastrointestinal General gastrointestinal: Present: soft, non-tender, non-distended, normal bowel sounds - Integumentary Integumentary: Present: clear - Psychiatric Psychiatric: appropriate mood/affect - Labs CBC & Chem 7: 12/15/16 03:51 12/15/16 03:51 Lab Results: Laboratory Results - last 24 hr 12/14/16 12/14/16 12/14/16 05:44 08:28 12:17 WBC 9.2 RBC 3.30 L Hgb 10.0 L Hct 31.1 MCV 94 D MCH 30 MCHC 32 RDW 15.0 Plt Count 263 Lymph # Manufacturing Engineer Assembly Add Manual Diff Complete Total Counted 100 Seg Neuts % (Manual) 59.0 Band Neutrophils % 0 Lymphocytes % (Manual) 30.0 Reactive Lymphs % (Man) 0 Monocytes % (Manual) 7.0 Eosinophils % (Manual) 3.0 Basophils % (Manual) 1.0 Metamyelocytes % 0 Myelocytes % 0 Promyelocytes % 0 Blast Cells % 0 Nucleated RBC % Not Reportable Seg Neutrophils # Man 5.4 Band Neutrophils # 0.0 Lymphocytes # (Manual) 2.8 Abs React Lymphs (Man) 0.0 Monocytes # (Manual) 0.6 Eosinophils # (Manual) 0.3 Basophils # (Manual) 0.1 Metamyelocytes # 0.0 Myelocytes # 0.0 Promyelocytes # 0.0 Blast Cells # 0.0 WBC Morphology Not Reportable Hypersegmented Neuts Not Reportable Hyposegmented Neuts Not Reportable Hypogranular Neuts Not Reportable Smudge Cells Not Reportable Toxic Granulation Not Reportable Toxic Vacuolation Not Reportable Dohle Bodies Not Reportable Pelger-Huet Anomaly Not Reportable Shania Rods Not Reportable Platelet Estimate Appears normal Clumped Platelets Not Reportable Plt Clumps, EDTA Not Reportable Large Platelets Not Reportable Giant Platelets Not Reportable Platelet Satelliting Not Reportable Plt Morphology Comment Not Reportable RBC Morphology Not Reportable Dimorphic RBCs Not Reportable Polychromasia Not Reportable Hypochromasia Not Reportable Poikilocytosis 1+ Anisocytosis Not Reportable Microcytosis Not Reportable Macrocytosis Not Reportable Spherocytes Not Reportable Pappenheimer Bodies Not Reportable Sickle Cells Not Reportable Target Cells 1+ Tear Drop Cells Not Reportable Ovalocytes Not Reportable Helmet Cells Not Reportable Martínez-Vaughn Bodies Not Reportable [place]uray Rings Not Reportable [place] Cells Not Reportable Bite Cells Not Reportable Crenated Cell Not Reportable Elliptocytes Not Reportable Acanthocytes (Spur) Not Reportable Rouleaux Not Reportable Hemoglobin C Crystals Not Reportable Schistocytes Not Reportable Malaria parasites Not Reportable Warren Bodies Not Reportable Hem Pathologist Commnt No PT INR Sodium Potassium Chloride Carbon Dioxide Anion Gap BUN Creatinine Estimated GFR BUN/Creatinine Ratio Glucose POC Glucose 183 H 237 H Lactic Acid Calcium Total Bilirubin AST ALT Alkaline Phosphatase Ammonia Total Protein Albumin Albumin/Globulin Ratio 12/14/16 12/14/16 12/15/16 16:17 21:26 03:51 WBC 7.4 RBC 3.01 L Hgb 9.0 L Hct 27.6 L MCV 92 MCH 30 MCHC 33 RDW 14.6 Plt Count 267 Lymph # Add Manual Diff Complete Total Counted 100 Seg Neuts % (Manual) 50.0 Band Neutrophils % 6.0 Lymphocytes % (Manual) 38.0 H Reactive Lymphs % (Man) 0 Monocytes % (Manual) 6.0 Eosinophils % (Manual) 0 Basophils % (Manual) 0 Metamyelocytes % 0 Myelocytes % 0 Promyelocytes % 0 Blast Cells % 0 Nucleated RBC % Not Reportable Seg Neutrophils # Man 3.7 Band Neutrophils # 0.4 Lymphocytes # (Manual) 2.8 Abs React Lymphs (Man) 0.0 Monocytes # (Manual) 0.4 Eosinophils # (Manual) 0.0 Basophils # (Manual) 0.0 Metamyelocytes # 0.0 Myelocytes # 0.0 Promyelocytes # 0.0 Blast Cells # 0.0 WBC Morphology Not Reportable Hypersegmented Neuts Not Reportable Hyposegmented Neuts Not Reportable Hypogranular Neuts Not Reportable Smudge Cells Not Reportable Toxic Granulation Not Reportable Toxic Vacuolation Not Reportable Dohle Bodies Not Reportable Pelger-Huet Anomaly Not Reportable Shania Rods Not Reportable Platelet Estimate Consistent w auto Clumped Platelets Not Reportable Plt Clumps, EDTA Not Reportable Large Platelets Not Reportable Giant Platelets Not Reportable Platelet Satelliting Not Reportable Plt Morphology Comment Not Reportable RBC Morphology Not Reportable Dimorphic RBCs Not Reportable Polychromasia Not Reportable Hypochromasia 1+ Poikilocytosis 1+ Anisocytosis Not Reportable Microcytosis Not Reportable Macrocytosis Not Reportable Spherocytes Not Reportable Pappenheimer Bodies Not Reportable Sickle Cells Not Reportable Target Cells 1+ Tear Drop Cells Not Reportable Ovalocytes Not Reportable Helmet Cells Not Reportable Martínez-Vaughn Bodies Not Reportable Luray Rings Not Reportable [place] Cells Not Reportable Bite Cells Not Reportable Crenated Cell Not Reportable Elliptocytes Not Reportable Acanthocytes (Spur) Not Reportable Rouleaux Not Reportable Hemoglobin C Crystals Not Reportable Schistocytes Not Reportable Malaria parasites Not Reportable Warren Bodies Not Reportable Hem Pathologist Commnt No PT INR Sodium Potassium Chloride Carbon Dioxide Anion Gap BUN Creatinine Estimated GFR BUN/Creatinine Ratio Glucose POC Glucose 144 H 263 H Lactic Acid Calcium Total Bilirubin AST ALT Alkaline Phosphatase Ammonia Total Protein Albumin Albumin/Globulin Ratio 12/15/16 12/15/16 12/15/16 03:51 03:51 03:51 WBC RBC Hgb Hct MCV MCH MCHC RDW Plt Count Lymph # Add Manual Diff Total Counted Seg Neuts % (Manual) Band Neutrophils % Lymphocytes % (Manual) Reactive Lymphs % (Man) Monocytes % (Manual) Eosinophils % (Manual) Basophils % (Manual) Metamyelocytes % Myelocytes % Promyelocytes % Blast Cells % Nucleated RBC % Seg Neutrophils # Man Band Neutrophils # Lymphocytes # (Manual) Abs React Lymphs (Man) Monocytes # (Manual) Eosinophils # (Manual) Basophils # (Manual) Metamyelocytes # Myelocytes # Promyelocytes # Blast Cells # WBC Morphology Hypersegmented Neuts Hyposegmented Neuts Hypogranular Neuts Smudge Cells Toxic Granulation Toxic Vacuolation Dohle Bodies Pelger-Huet Anomaly Shania Rods Platelet Estimate Clumped Platelets Plt Clumps, EDTA Large Platelets Giant Platelets Platelet Satelliting Plt Morphology Comment RBC Morphology Dimorphic RBCs Polychromasia Hypochromasia Poikilocytosis Anisocytosis Microcytosis Macrocytosis Spherocytes Pappenheimer Bodies Sickle Cells Target Cells Tear Drop Cells Ovalocytes Helmet Cells Martínez-Vaughn Bodies Luray Rings [place] Cells Bite Cells Crenated Cell Elliptocytes Acanthocytes (Spur) Rouleaux Hemoglobin C Crystals Schistocytes Malaria parasites Warren Bodies Hem Pathologist Commnt PT 14.4 INR 1.13 Sodium 134 L Potassium 3.4 L D Chloride 99.1 Carbon Dioxide 21 L Anion Gap 17 BUN 9 Creatinine 0.3 L Estimated GFR > 60 BUN/Creatinine Ratio 30.00 Glucose 24 L* POC Glucose Lactic Acid Calcium 8.6 Total Bilirubin 10.3 H AST 77 H ALT 70 H Alkaline Phosphatase 681 H Ammonia 44.0 Total Protein 5.6 L Albumin 2.4 L Albumin/Globulin Ratio 0.8 12/15/16 12/15/16 12/15/16 03:51 03:58 04:23 WBC RBC Hgb Hct MCV MCH MCHC RDW Plt Count Lymph # Add Manual Diff Total Counted Seg Neuts % (Manual) Band Neutrophils % Lymphocytes % (Manual) Reactive Lymphs % (Man) Monocytes % (Manual) Eosinophils % (Manual) Basophils % (Manual) Metamyelocytes % Myelocytes % Promyelocytes % Blast Cells % Nucleated RBC % Seg Neutrophils # Man Band Neutrophils # Lymphocytes # (Manual) Abs React Lymphs (Man) Monocytes # (Manual) Eosinophils # (Manual) Basophils # (Manual) Metamyelocytes # Myelocytes # Promyelocytes # Blast Cells # WBC Morphology Hypersegmented Neuts Hyposegmented Neuts Hypogranular Neuts Smudge Cells Toxic Granulation Toxic Vacuolation Dohle Bodies Pelger-Huet Anomaly Shania Rods Platelet Estimate Clumped Platelets Plt Clumps, EDTA Large Platelets Giant Platelets Platelet Satelliting Plt Morphology Comment RBC Morphology Dimorphic RBCs Polychromasia Hypochromasia Poikilocytosis Anisocytosis Microcytosis Macrocytosis Spherocytes Pappenheimer Bodies Sickle Cells Target Cells Tear Drop Cells Ovalocytes Helmet Cells Martínez-Vaughn Bodies Luray Rings [place] Cells Bite Cells Crenated Cell Elliptocytes Acanthocytes (Spur) Rouleaux Hemoglobin C Crystals Schistocytes Malaria parasites Warren Bodies Hem Pathologist Commnt PT INR Sodium Potassium Chloride Carbon Dioxide Anion Gap BUN Creatinine Estimated GFR BUN/Creatinine Ratio Glucose POC Glucose < 40 L 168 H Lactic Acid 0.9 Calcium Total Bilirubin AST ALT Alkaline Phosphatase Ammonia Total Protein Albumin Albumin/Globulin Ratio - Imaging CT Scan: report reviewed (dilated CBD/PD, ?pseudocyst) Assessment and Plan 66yo woman admitted with hyperglycemia/altered mental status. She was noticed to be clinically jaundiced on exam and CT shows dilated CBD/PD. There is also mention of questionable pancreatic pseudocyst. The presence of both ducts being dilated, AKA "double duct sign", is concerning for underlying pancreatic malignancy vs ampullary mass, although other pancreatic phenomena (i.e. IPMN) may result in this. Rec: 1) Keep NPO 2) MRCP today Further recommendations to follow MRCP. Thank you for allowing me to participate in the care of your patient. Please do not hesitate to contact me with any questions.
[2016-12-15] MEDS: NOVOLOG SUB-Q SCH ×4 (08:00→22:45)
--- NOTE | 2016-12-15 09:26 | Progress Note ---
Assessment and Plan IMP: CBD obstruction with dilatation of CBD and pancreatic duct; stone vs tumor. PLAN: Will need ERCP. Subjective Date of service: 12/15/16 Patient Reports: Positive: no new complaints Objective Vital Signs - 12hr 12/15/16 12/15/16 00:39 06:38 Temperature 100.0 F H 97.5 F L Pulse Rate [ 98 H 95 H Right Dorsalis Pedis] Respiratory 20 20 Rate Blood Pressure 87/51 100/53 [Left Arm] O2 Sat by Pulse 99 98 Oximetry - Abdomen soft, not tender, bowel sounds normal - Labs 12/15/16 03:51 12/15/16 03:51 Diabetes panel 12/15/16 Range/Units 03:51 Sodium 134 L (137-145) mmol/L Potassium 3.4 L D (3.6-5.0) mmol/L Chloride 99.1 (98-107) mmol/L Carbon Dioxide 21 L (22-30) mmol/L BUN 9 (7-17) mg/dL Creatinine 0.3 L (0.7-1.2) mg/dL Glucose 24 L* (65-100) mg/dL Calcium 8.6 (8.4-10.2) mg/dL AST 77 H (5-40) units/L ALT 70 H (7-56) units/L Alkaline Phosphatase 681 H (35-129) units/L Total Protein 5.6 L (6.3-8.2) g/dL Albumin 2.4 L (3.9-5) g/dL Calcium panel 12/15/16 Range/Units 03:51 Calcium 8.6 (8.4-10.2) mg/dL Albumin 2.4 L (3.9-5) g/dL Pituitary panel 12/15/16 Range/Units 03:51 Sodium 134 L (137-145) mmol/L Potassium 3.4 L D (3.6-5.0) mmol/L Chloride 99.1 (98-107) mmol/L Carbon Dioxide 21 L (22-30) mmol/L BUN 9 (7-17) mg/dL Creatinine 0.3 L (0.7-1.2) mg/dL Glucose 24 L* (65-100) mg/dL Calcium 8.6 (8.4-10.2) mg/dL Adrenal panel 02/22/17 Range/Units 03:51 Sodium 134 L (137-145) mmol/L Potassium 3.4 L D (3.6-5.0) mmol/L Chloride 99.1 (98-107) mmol/L Carbon Dioxide 21 L (22-30) mmol/L BUN 9 (7-17) mg/dL Creatinine 0.3 L (0.7-1.2) mg/dL Glucose 24 L* (65-100) mg/dL Calcium 8.6 (8.4-10.2) mg/dL Total Bilirubin 10.3 H (0.1-1.2) mg/dL AST 77 H (5-40) units/L ALT 70 H (7-56) units/L Alkaline Phosphatase 681 H (35-129) units/L Total Protein 5.6 L (6.3-8.2) g/dL Albumin 2.4 L (3.9-5) g/dL - Imaging MRI - abdomen: image reviewed (with radiologist)
[2016-12-15] MEDS: FOLVITE PO SCH (10:29)
[2016-12-15] MEDS: VITAMIN B-1 PO SCH (10:29)
[2016-12-15] MEDS: LOVENOX SUB-Q SCH (10:29)
--- NOTE | 2016-12-15 11:01 | Magnetic Resonance Report ---
MRI ABDOMEN WITHOUT CONTRAST WITH MRCP: INDICATION: Jaundice and dilated pancreatic duct. COMPARISON: 12/11/2016 and 12/27/2014 CTs. FINDINGS: Noncontrast multiplanar and multisequence MRI of the abdomen demonstrates gallbladder distended to approximately 16 cm in length, similar to 4 days ago, though measured approximately 10 cm in December 2014. Recent CT also again demonstrated 3 calcified stacked gallstones, individually approximately 1.5 cm in size. Subtle gallbladder wall thickening and surrounding edema may be present. [id number] central intrahepatic biliary dilatation is stable since 4 days ago, though new since December 2014. Pancreatic duct dilation though again noted in this patient with chronic pancreatitis with calcifications most clustered in the pancreatic head, though not as clearly delineated on the recent CT due to motion artifact. Minimal perihepatic ascites is new. Mild bilateral perinephric stranding. Stable 2.7 cm left renal interpolar cyst anteriorly as also other small, subcentimeter renal T2 hyperintensities. Mild thickening/fluid signal along the anterior pararenal fascia on the left and the lateroconal fascia/paracolic gutter also unchanged since 4 days ago, though new since December 2014. Pancreatic head calcifications now create susceptibility artifact, limiting assessment. Grossly unremarkable spleen, nonaneurysmal abdominal aorta and IVC. Subtle diffuse bilateral adrenal prominence/adenomatous hyperplasia may again be noted. Few small, subcentimeter retroperitoneal lymph nodes may be present. Grossly normal bowel, marrow and muscle signal. Mild scoliosis and few bony degenerative changes along the spine again noted. Visualized lung bases may suggest bibasilar dependent atelectasis. MRCP images demonstrate CBD caliber at the jaylene hepatis approximately 2 cm, tapering to approximately 0.8 cm about the level of the pancreatic head where it abruptly terminates as on source series 7, image 49, about the same level as the adjacent dilated pancreatic duct. Maximum pancreatic duct caliber at the pancreatic head is approximately 1.9 cm, image 68 and approximately 0.9 cm more inferiorly just above its abrupt termination as well. Corresponding pancreatic duct measurement in the head was approximately 1.[address] MRCP images also show relative narrowing/waist about the pancreatic neck duct with caliber reducing to approximately 0.6 cm focally, image 74. CONCLUSION: 1. MRI/MRCP appearance stable since CT from 4 days ago, though new intrahepatic and common bile duct dilatation noted since December 2014, as described. Gallbladder is also more distended since then, though gallstones and chronic pancreatitis changes appear stable since December 2014 on this limited, unenhanced exam. 2. Diffuse pancreatic duct dilation appears mildly greater, though also present on December 2014 CT. 3. New minimal perihepatic ascites and mild edema/inflammation surrounding the gallbladder and some peripancreatic extending along the left retroperitoneum, as described. 4. Few other incidental findings, including stable left renal cyst. Possibilities as an occult pancreatic head/ampullary region mass would primarily remain to be excluded in this setting versus others including choledocholithiasis. ERCP may be further helpful, as warranted. I discussed the above results with Dr. Schultz in person, 9:30 AM, 12/15/2016. Thank you for the opportunity to participate in this patient's care.
[2016-12-15] MEDS: ZOSYN/NS 4.5GM/100ML 4.5 GM/100 ML VIAL IV SCH (20:12)
[2016-12-15] MEDS: VANCOMYCIN VIAL 1,250 MG in NACL 0.9% 250ML 250 ML IV SCH (20:52)
--- NOTE | 2016-12-15 21:23 | Progress Note ---
Assessment and Plan 1. Hyperglycemic hyperosmolar nonketotic state: resolved with insulin drip. Had a symptomatic episode of hypoglycemia. Adjust insulin regimen. 2. Biliary obstruction: We will follow up with result of MRCP. Abdomen slightly elevated temperature of 100.0. No chills. Lactic acid level elevated. Blood cultures ordered. IV vancomycin and Zosyn ordered. Follow up with result of the same. 3. Diabetes mellitus: continue sliding scale insulin. Consistent carbohydrate diet. 4. Hyperbilirubinemia. Likely secondary to biliary obstruction and possibly from a pancreatic cyst or a pancreatic mass. Discussed with the physician/ophthalmologist Dr Main. Input appreciated. 5. Alcohol abuse: Alcohol cessation counseling done. Continue with [facility]IP[facility] protocol 6. Tobacco use disorder: Tobacco cessation counseling was done 7. DVT prophylaxis with Lovenox and GI with Protonix Subjective Date of service: 12/15/16 Principal diagnosis: Altered mental status Interval history: Complains of minimal occasional epigastric pain after eating. No nausea no vomiting. Had elevated temperature of 100.0. No chills Objective - Constitutional Vitals: Vital Signs - 12hr 12/15/16 12/15/16 12/15/16 09:45 10:58 17:00 Temperature 98.3 F Pulse Rate 88 Pulse Rate [ 70 Left Radial] Pulse Rate [ 96 H Right Radial] Respiratory 18 Rate Blood Pressure 92/52 [Left Arm] Blood Pressure 101/56 [Right Arm] O2 Sat by Pulse 95 Oximetry General appearance: Present: no acute distress, well-nourished - EENT Eyes: PERRL, EOM intact ENT: hearing intact, clear oral mucosa Ears: bilateral: normal - Neck Neck: supple, normal ROM - Respiratory Respiratory effort: normal Respiratory: bilateral: CTA - Breasts Breasts: normal - Cardiovascular Rhythm: regular Heart Sounds: Present: S1 & S2. Absent: gallop, rub Extremities: pulses intact, No edema, normal color, Full ROM - Gastrointestinal General gastrointestinal: Present: soft, non-tender, non-distended, normal bowel sounds - Genitourinary Female genitourinary: normal - Integumentary Integumentary: clear, warm, dry - Musculoskeletal Musculoskeletal: 1, strength equal bilaterally - Neurologic Neurologic: moves all extremities - Psychiatric Psychiatric: memory intact, appropriate mood/affect, intact judgment & insight - Labs CBC & Chem 7: 12/15/16 03:51 12/15/16 03:51 Labs: Abnormal lab results 12/14/16 12/15/16 12/15/16 Range/Units 21:26 03:51 03:51 RBC 3.01 L (3.65-5.03) M/mm3 Hgb 9.0 L (10.1-14.3) gm/dl Hct 27.6 L (30.3-42.9) % Lymphocytes % (Manual) 38.0 H (13.4-35.0) % Sodium 134 L (137-145) mmol/L Potassium 3.4 L D (3.6-5.0) mmol/L Carbon Dioxide 21 L (22-30) mmol/L Creatinine 0.3 L (0.7-1.2) mg/dL Glucose 24 L* (65-100) mg/dL POC Glucose 263 H (70-105) Lactic Acid (0.7-2.0) mmol/L Total Bilirubin 10.3 H (0.1-1.2) mg/dL AST 77 H (5-40) units/L ALT 70 H (7-56) units/L Alkaline Phosphatase 681 H (35-129) units/L Total Protein 5.6 L (6.3-8.2) g/dL Albumin 2.4 L (3.9-5) g/dL 12/15/16 12/15/16 12/15/16 Range/Units 03:58 04:23 06:57 RBC (3.65-5.03) M/mm3 Hgb (10.1-14.3) gm/dl Hct (30.3-42.9) % Lymphocytes % (Manual) (13.4-35.0) % Sodium (137-145) mmol/L Potassium (3.6-5.0) mmol/L Carbon Dioxide (22-30) mmol/L Creatinine (0.7-1.2) mg/dL Glucose (65-100) mg/dL POC Glucose < 40 L 168 H < 40 L (70-105) Lactic Acid (0.7-2.0) mmol/L Total Bilirubin (0.1-1.2) mg/dL AST (5-40) units/L ALT (7-56) units/L Alkaline Phosphatase (35-129) units/L Total Protein (6.3-8.2) g/dL Albumin (3.9-5) g/dL 12/15/16 12/15/16 12/15/16 Range/Units 07:15 11:15 11:57 RBC (3.65-5.03) M/mm3 Hgb (10.1-14.3) gm/dl Hct (30.3-42.9) % Lymphocytes % (Manual) (13.4-35.0) % Sodium (137-145) mmol/L Potassium (3.6-5.0) mmol/L Carbon Dioxide (22-30) mmol/L Creatinine (0.7-1.2) mg/dL Glucose (65-100) mg/dL POC Glucose 208 H 281 H (70-105) Lactic Acid 3.2 H* (0.7-2.0) mmol/L Total Bilirubin (0.1-1.2) mg/dL AST (5-40) units/L ALT (7-56) units/L Alkaline Phosphatase (35-129) units/L Total Protein (6.3-8.2) g/dL Albumin (3.9-5) g/dL
[2016-12-16] MEDS ORDERED: VANCOMYCIN/NS 1 GM/250 ML 1 GM/250 ML BAG IV SCH (04:00)
[2016-12-16] MEDS: ZOSYN/NS 4.5GM/100ML 4.5 GM/100 ML VIAL IV SCH ×3 (04:47→22:00)
[2016-12-16 06:06] LABS: Hematocrit 25.8 % (30.3-42.9); Hemoglobin 8.4 gm/dl (10.1-14.3); Mean Corpuscular HGB Conc 33 % (30-34); Mean Corpuscular Hemoglobin 30 pg (28-32); Mean Corpuscular Volume 92 fl (79-97); Platelet Count 271 K/mm3 (140-440); Red Cell Distribution Width 14.9 % (13.2-15.2); White Blood Count 6.1 K/mm3 (4.5-11.0)
[2016-12-16 06:20] LABS: Alanine Aminotransferase 70 units/L (7-56); Albumin 2.1 g/dL (3.9-5); Albumin/Globulin Ratio 0.7 %; Alkaline Phosphatase 564 units/L (35-129); Anion Gap 18 mmol/L; Bilirubin,Total 9.6 mg/dL (0.1-1.2); Blood Urea Nitrogen 6 mg/dL (7-17); Calcium 8.2 mg/dL (8.4-10.2); Carbon Dioxide 20 mmol/L (22-30); Glucose 149 mg/dL (65-100); Sodium 137 mmol/L (137-145)
[2016-12-16 07:19] LABS: Basophils % (Manual) 0 % (0.0-1.8); Blastocytes % (Manual) 0 %; Diff Status Complete; Eosinophils % (Manual) 0 % (0.0-4.3); Hypochromasia 1+; Poikilocytosis 1+; Target Cells 1+
[2016-12-16] MEDS: VANCOMYCIN VIAL 1,250 MG in NACL 0.9% 250ML 250 ML IV SCH ×2 (08:30→22:26)
[2016-12-16] MEDS: NOVOLOG SUB-Q SCH ×4 (08:39→22:25)
[2016-12-16] MEDS: LOVENOX SUB-Q SCH (11:00)
[2016-12-16] MEDS: VITAMIN B-1 PO SCH (12:13)
[2016-12-16] MEDS: FOLVITE PO SCH (12:13)
[2016-12-16] MEDS ORDERED: DIPRIVAN 10 MG/ML IV ONE ×2 (15:50)
--- NOTE | 2016-12-16 16:31 | Anesthesia Consultation ---
Anesthesia Consult and Med Hx - Airway Anesthetic Teeth Evaluation: Dentures, Partials ROM Head & Neck: Adequate Mental/Hyoid Distance: Adequate Mallampati Class: Class II Intubation Access Assessment: Probably Good - Pulmonary Exam CTA: Yes - Cardiac Exam Cardiac Exam: RRR - Pre-Operative Health Status ASA Pre-Surgery Classification: ASA2, ASA3 Proposed Anesthetic Plan: MAC - Pulmonary Hx Smoking: Yes (1ppd) - Cardiovascular System Hx Hypertension: Yes - Endocrine Hx Non-Insulin Dependent Diabetes: Yes - Other Systems Hx Alcohol Use: Yes
--- NOTE | 2016-12-16 16:31 | Anesthesia Day of Surgery ---
Anesthesia Day of Surgery - Day of Surgery Patient Examined: Yes Patient H&P Reviewed: Yes Patient is NPO: Yes
--- NOTE | 2016-12-16 16:54 | Post Operative Note ---
Pre-op diagnosis: Possible ampullary lesion Post-op diagnosis: other (Edematous major papilla) Findings: 1. Major and minor papillae seen and major was edematous/bulging consistent with acute on chronic pancreatitis; no mass was seen. 2. Otherwise normal upper GI tract with no varices. Procedure: EGD Anesthesia: MAC Surgeon: DACIA PERALES Estimated blood loss: none Pathology: none Specimen disposition: other (N/A) Condition: stable Disposition: floor (Recs: 1. Acute on chronic pancreatitis from EtOH, but some of obstruction of biliary system may be reversible with d/c of EtOH. 2. MVI and good nutrition with EtOH abstinance recommended. 3. If LFTs fail to improve over the next 4 weeks, the patient needs ERCP for stenting of the developing pancreatic stricture (with brushing). The chronic (> 2 year) hx of PD dilation however makes mass lesion less likely.)
[2016-12-16] MEDS ORDERED: ATIVAN IV PRN (16:59)
[2016-12-16] MEDS ORDERED: NACL 0.9% 1000 ML 1,000 ML IV SCH (17:00)
--- NOTE | 2016-12-16 18:22 | Progress Note ---
Assessment and Plan 1. Hyperglycemic hyperosmolar nonketotic state: Resolved with insulin drip. 2. Biliary obstruction: MRCP showed intrahepatic and common bile duct dilatation, more distended gallbladder since last study, diffuse pancreatic duct dilatation that is mildly greater since last study, new minimal perihepatic ascites. Possibility of pancreatic mass excluded. Ed Special Education Teacher following. Blood cultures showed no growth. On IV vancomycin and Zosyn. 3. Diabetes mellitus: continue sliding scale insulin. Consistent carbohydrate diet. 4. Hyperbilirubinemia. Likely secondary to intrahepatic and common bile duct dilatation. Ed Special Education Teacher following. 5. Alcohol abuse: Alcohol cessation counseling done. Continue with [facility] protocol 6. Tobacco use disorder: Tobacco cessation counseling was done 7. DVT prophylaxis with Lovenox and GI with Protonix Subjective Date of service: 12/16/16 Principal diagnosis: Altered mental status Interval history: No overnight events. Objective - Constitutional Vitals: Vital Signs - 12hr 12/16/16 12/16/16 12/16/16 07:55 08:38 11:45 Temperature 98.8 F 99.1 F Pulse Rate 75 Pulse Rate [ 90 84 Right Radial] Respiratory 20 18 Rate Blood Pressure Blood Pressure 100/62 109/70 [Right Arm] O2 Sat by Pulse 96 97 Oximetry 12/16/16 12/16/16 12/16/16 16:29 16:34 16:53 Temperature 98.6 F 98.6 F 98 F Pulse Rate 75 84 Pulse Rate [ Right Radial] Respiratory 11 L 11 L 27 H Rate Blood Pressure 115/63 115/63 100/56 Blood Pressure [Right Arm] O2 Sat by Pulse 95 95 95 Oximetry 12/16/16 12/16/16 12/16/16 17:08 17:23 17:38 Temperature 98 F Pulse Rate 80 83 81 Pulse Rate [ Right Radial] Respiratory 16 21 16 Rate Blood Pressure 115/67 126/66 118/65 Blood Pressure [Right Arm] O2 Sat by Pulse 96 95 95 Oximetry General appearance: Present: no acute distress, well-nourished - EENT Eyes: PERRL, EOM intact ENT: hearing intact, clear oral mucosa Ears: bilateral: normal - Neck Neck: supple, normal ROM - Respiratory Respiratory effort: normal Respiratory: bilateral: CTA - Breasts Breasts: normal - Cardiovascular Rhythm: regular Heart Sounds: Present: S1 & S2. Absent: gallop, rub Extremities: pulses intact, No edema, normal color, Full ROM - Gastrointestinal General gastrointestinal: Present: soft, non-tender, non-distended, normal bowel sounds - Genitourinary Female genitourinary: normal - Integumentary Integumentary: clear, warm, dry - Musculoskeletal Musculoskeletal: 1, strength equal bilaterally - Neurologic Neurologic: moves all extremities - Psychiatric Psychiatric: memory intact, appropriate mood/affect, intact judgment & insight - Labs CBC & Chem 7: 12/16/16 05:28 12/16/16 05:28 Labs: Abnormal lab results 12/15/16 12/15/16 12/16/16 Range/Units 17:03 21:56 05:28 RBC 2.80 L (3.65-5.03) M/mm3 Hgb 8.4 L (10.1-14.3) gm/dl Hct 25.8 L (30.3-42.9) % Monocytes % (Manual) 10.0 H (0.0-7.3) % Carbon Dioxide (22-30) mmol/L BUN (7-17) mg/dL Creatinine (0.7-1.2) mg/dL Glucose (65-100) mg/dL POC Glucose 224 H 155 H (70-105) Calcium (8.4-10.2) mg/dL Total Bilirubin (0.1-1.2) mg/dL AST (5-40) units/L ALT (7-56) units/L Alkaline Phosphatase (35-129) units/L Total Protein (6.3-8.2) g/dL Albumin (3.9-5) g/dL 12/16/16 12/16/16 12/16/16 Range/Units 05:28 08:04 11:50 RBC (3.65-5.03) M/mm3 Hgb (10.1-14.3) gm/dl Hct (30.3-42.9) % Monocytes % (Manual) (0.0-7.3) % Carbon Dioxide 20 L (22-30) mmol/L BUN 6 L (7-17) mg/dL Creatinine 0.2 L (0.7-1.2) mg/dL Glucose 149 H (65-100) mg/dL POC Glucose 184 H 158 H (70-105) Calcium 8.2 L (8.4-10.2) mg/dL Total Bilirubin 9.6 H (0.1-1.2) mg/dL AST 79 H (5-40) units/L ALT 70 H (7-56) units/L Alkaline Phosphatase 564 H (35-129) units/L Total Protein 5.0 L (6.3-8.2) g/dL Albumin 2.1 L (3.9-5) g/dL 12/16/16 Range/Units 16:20 RBC (3.65-5.03) M/mm3 Hgb (10.1-14.3) gm/dl Hct (30.3-42.9) % Monocytes % (Manual) (0.0-7.3) % Carbon Dioxide (22-30) mmol/L BUN (7-17) mg/dL Creatinine (0.7-1.2) mg/dL Glucose (65-100) mg/dL POC Glucose 123 H (70-105) Calcium (8.4-10.2) mg/dL Total Bilirubin (0.1-1.2) mg/dL AST (5-40) units/L ALT (7-56) units/L Alkaline Phosphatase (35-129) units/L Total Protein (6.3-8.2) g/dL Albumin (3.9-5) g/dL
--- NOTE | 2016-12-16 19:19 | Operative Report ---
ENDOSCOPY DOCUMENT PROCEDURE PERFORMED: Esophagogastroduodenoscopy. PREOPERATIVE DIAGNOSES: Possible ampullary mass with biliary dilation. POSTOPERATIVE DIAGNOSES: Bulging ampulla from acute pancreatitis, but otherwise negative upper GI tract. ENDOSCOPIST: Willy Shetty MD INSTRUMENT: Extricom video endoscope. MEDICATIONS: MAC anesthesia by Anesthesia Services. COMPLICATIONS: No complications. ESTIMATED BLOOD LOSS: None. SPECIMENS: None. IMPLANTS: None. CONDITION AT COMPLETION: Stable. MACHINE STAMPER: None. TECHNIQUE: The patient was informed of the risks and benefits of the procedure. She signed the informed consent to proceed. She was placed in left lateral decubitus position. The above sedative medications were given. Her vital signs remained stable throughout the procedure. The instrument was advanced from the mouth to the second portion of the duodenum under direct visualization. At that point, the bowel was insufflated and the endoscope was slowly withdrawn. FINDINGS: 1. The major and minor papillae were seen in the duodenum; the minor papilla was totally normal. The major papilla is bulging and edematous from acute pancreatitis, but there was no evidence of abnormal mucosa nor any evidence of mass lesion. 2. Otherwise, normal upper gastrointestinal tract with no evidence of gastric or esophageal varices. RECOMMENDATIONS: 1. Acute on chronic pancreatitis appears to be from alcohol, but there is some other obstruction of the biliary system may be reversible if the patient quits her alcohol abuse. 2. Multivitamin and good nutrition therapy with alcohol abstinence recommended. 3. If the liver enzymes fail to improve over the next 4 weeks, the patient needs ERCP with stenting for developing pancreatic stricture, with brushing. The chronic, greater than 2 year, history of pancreatic duct dilation; however, makes a mass lesion less likely. 4. Okay to discharge home if the patient tolerates regular diet and she has no sign of alcohol withdrawal. JOB# [id number] MARY/NTS
[2016-12-16] MEDS ORDERED: VANCOMYCIN VIAL 1,250 MG in NACL 0.9% 250ML 250 ML IV SCH (20:00)
[2016-12-17] MEDS: ZOSYN/NS 4.5GM/100ML 4.5 GM/100 ML VIAL IV SCH (04:53)
[2016-12-17 07:08] LABS: Mean Corpuscular HGB Conc 32 % (30-34); Platelet Count 306 K/mm3 (140-440)
[2016-12-17 07:14] LABS: Hematocrit 26.3 % (30.3-42.9); Hemoglobin 8.4 gm/dl (10.1-14.3); Mean Corpuscular Hemoglobin 30 pg (28-32); Mean Corpuscular Volume 95 fl (79-97); Red Blood Count 2.77 M/mm3 (3.65-5.03); White Blood Count 6.6 K/mm3 (4.5-11.0)
[2016-12-17 07:29] LABS: Alanine Aminotransferase 58 units/L (7-56); Albumin 1.9 g/dL (3.9-5); Albumin/Globulin Ratio 0.6 %; Alkaline Phosphatase 592 units/L (35-129); Anion Gap 18 mmol/L; Bilirubin,Total 10.7 mg/dL (0.1-1.2); Blood Urea Nitrogen 4 mg/dL (7-17); Calcium 8.2 mg/dL (8.4-10.2); Carbon Dioxide 19 mmol/L (22-30); Chloride 100.8 mmol/L (98-107); Glucose 136 mg/dL (65-100); Potassium 3.9 mmol/L (3.6-5.0); Sodium 134 mmol/L (137-145); Total Protein 5.3 g/dL (6.3-8.2)
[2016-12-17 08:01] LABS: Blastocytes % (Manual) 0 %
[2016-12-17 08:02] LABS: Anisocytosis 1+; Macrocytosis 1+; Polychromasia Few; Target Cells 2+
[2016-12-17 08:03] LABS: Platelet Clumps Few
[2016-12-17 08:04] LABS: Diff Status Complete
[2016-12-17 09:13] VITALS: BP 92/56
[2016-12-17] MEDS ORDERED: THERAGRAN Tab PO SCH (10:00)
[2016-12-17] MEDS: FOLVITE PO SCH (10:16)
[2016-12-17] MEDS: LOVENOX SUB-Q SCH (10:16)
[2016-12-17] MEDS: NOVOLOG SUB-Q SCH ×2 (10:17→13:30)
[2016-12-17] MEDS: VITAMIN B-1 PO SCH (10:17)
--- NOTE | 2016-12-17 10:56 | Discharge Summary ---
Providers - Providers Date of Admission: 12/11/16 12:35 Date of discharge: 12/17/16 Attending physician: STONEY ROBBINS MD 12/14/16 10:52 Consult to Physician [CONS] Routine Consulting Provider: SULMA CASTAÑEDA Reason For Exam: Elevated Billirubin Place consult to:: SULMA CASTAÑEDA Notified:: Moises NGUYEN Phone number called:: [phone] Was contact made?: Yes If yes, spoke with:: RobertOffice Time called:: 10:51 12/14/16 19:22 Consult to Physician [CONS] Routine Consulting Provider: DACIA PERALES Reason For Exam: Biliary obstruction Place consult to:: Dr. Perales Notified:: PLEASE CALL MD IN AM Was contact made?: Yes Comment:: said to place patient on list Primary care physician: MEDICARE INSURANCE SPECIALIST Hospitalization Reason for admission: altered mental status Condition: Stable Hospital course: Patient is a 66-year-old lady who has a history of diabetes mellitus hypertension alcohol and tobacco use disorder was found by EMS to have alteration in mental status has a friend who lives a few doors away from a apartment came to take her out for breakfast. They are chatted till 8 PM the previous night. However when her friend called, she found to have alteration in her mental status. Unable to open the door. EMS was called. They'll was forced and found the patient confused. Blood sugar at the scene was over 600. Patient was brought to the emergency department. The patient's friend who brought her to the emergency department stated there has no fever, no nausea no vomiting. She was very lucid the night before. However in the emergency department patient was found to be altered in her mental status. Ph was 7.300. Blood sugar was 589. Patient was commenced on normal saline and insulin drip. Admission was therefore requested. On admission patient was started on insulin drip with improvement off hyperglycemic O's multiple nonketotic state patient was also seen by car dumper operator for R Sunny is pancreatitis. Upon further review it was noted that she does have chronic dilatation of her PD with developing diabetes and of the CBD and active pancreatitis. Recommendations was for her to stop alcohol use for which we've provided multiple resources. Heart jaundice gradually improved but by upright to her baseline she is tolerating diet. She is to follow with GI outpatient and I did discuss this extensively with this patient the risk of noncompliance and continued alcohol use including but not limited to she verbalized understanding. More than 20 minutes was spent on counseling on this patient and also provided resources to help. ERCP is recommended outpatient would brushing to rule out malignancy and this has been discussed with the patient. Discharge diagnosis 1. Hyperglycemic hyperosmolar nonketotic state 2. Acute pancreatitis secondary to alcohol abuse 3. Diabetes mellitus 4. Hyperbilirubinemia. 5. Alcohol abuse 6. Tobacco use disorder: Tobacco cessation counseling was done with 15 minutes of time spent ON admission. 7. Obstructive jaundice 8. Metabolic encephalopathy secondary to alcohol abuse Disposition: DISCHARGED TO HOME OR SELFCARE Time spent for discharge: 35 mins Core Measure Documentation - Palliative Care Palliative Care/ Comfort Measures: Not Applicable - Core Measures Any of the following diagnoses?: none - VTE Discharge Requirements Deep Vein Thrombosis/Pulmonary Embolism Present on Admission: No Exam - Physical Exam Narrative exam: VITAL SIGNS: Reviewed. GENERAL: The patient appeared well nourished and normally developed. Vital signs as documented. HEAD: No signs of head trauma. EYES: Pupils are equal. Extraocular motions intact. icteric sclera EARS: Hearing grossly intact. MOUTH: Oropharynx is normal. NECK: No adenopathy, no JVD. CHEST: Chest with clear breath sounds bilaterally. No wheezes, rales, or rhonchi. CARDIAC: Regular rate and rhythm. S1 and S2, without murmurs, gallops, or rubs. VASCULAR: No Edema. Peripheral pulses normal and equal in all extremities. ABDOMEN: Soft, without detectable tenderness. No sign of distention. No rebound or guarding, and no masses palpated. Bowel Sounds normal. MUSCULOSKELETAL: Good range of motion of all major joints. Extremities without clubbing, cyanosis or edema. NEUROLOGIC EXAM: Alert and oriented x 3. No focal sensory or strength deficits. Speech normal. Follows commands. PSYCHIATRIC: Mood normal. SKIN: Jaundiced. - Constitutional Vitals: Temp Pulse Resp BP Pulse Ox 97.8 F 93 H 20 92/56 96 12/17/16 08:00 12/17/16 08:00 12/17/16 08:00 12/17/16 08:00 12/17/16 08:00 Plan Activity: advance as tolerated, fall precautions Diet: low fat Special Instructions: smoking cessation, other (avoid alcohol) Additional Instructions: repeat LFT outpatient with Primary care doctor or Broke Handler Follow up with: [facility] [Provider Group] - 7 Days PRIMARY CAREMD [Primary Care Provider] - 3-5 Days DESHAWN LUCAS MD [Staff Physician] - 7 Days Prescriptions: Folic Acid [Folvite] 1 mg PO QDAY #30 tablet Multivitamin Tab [Multiple Vitamin TAB (Theragran)] 1 each PO QDAY #30 tablet Nicotine [Habitrol] 14 mg TD QDAY PRN #30 patch PRN Reason: nicotine withdrawal Thiamine [Vitamin B-1] 100 mg PO QDAY #30 tablet
--- NOTE | 2016-12-17 11:20 | Gastroenterology Progress Note ---
<VÍCTOR RASHID MEEK - Last Filed: 12/17/16 11:22> Assessment and Plan 66yo woman admitted with hyperglycemia/altered mental status. She was noticed to be clinically jaundiced on exam and CT shows dilated CBD/PD. There is also mention of questionable pancreatic pseudocyst. The presence of both ducts being dilated, AKA "double duct sign", is concerning for underlying pancreatic malignancy vs ampullary mass, although other pancreatic phenomena (i.e. IPMN) may result in this. Rec: 1) Keep NPO 2) MRCP today Further recommendations to follow MRCP. 1. Jaundice 2. Abnormal CT 3. A/C pancreatitis 4. Degree if ETOH Hepatitis. -ETOH cessation -S/P EGD with edema / bulging at major papillae consistent with acute on chronic pancreatitis; no mass was seen. Otherwise normal upper GI tract. -Some obstruction from biliary system may be reversible it patient quits ETOH use. -MVI -IF LFTS fail to improve over the next month, will need ERCP stenting/brushing for stricture( stricture is chronic > 2 years). -OK to DC per GI standpoint. Tolerating PO well. LFTS stable. Office information given to patient and she is agreeable to plan of care. Follow up in clinic in 2-3 weeks. Subjective Date of service: 12/17/16 Principal diagnosis: Altered mental status Interval history: No acute events overnight. Objective - Constitutional Vitals: Temp Pulse Resp BP Pulse Ox 97.8 F 93 H 20 92/56 96 12/17/16 08:00 12/17/16 08:00 12/17/16 08:00 12/17/16 08:00 12/17/16 08:00 General appearance: no acute distress - EENT Eyes: EOM intact ENT: hearing intact - Neck Neck: supple - Cardiovascular Rhythm: regular - Gastrointestinal General gastrointestinal: Present: soft, non-tender - Integumentary Integumentary: Present: warm, dry - Labs CBC & Chem 7: 12/17/16 06:16 12/17/16 06:16 Labs: Laboratory Results - last 24 hr 12/16/16 12/16/16 12/16/16 11:50 14:10 16:20 WBC RBC Hgb Hct MCV MCH MCHC RDW Plt Count Add Manual Diff Total Counted Seg Neuts % (Manual) Band Neutrophils % Lymphocytes % (Manual) Reactive Lymphs % (Man) Monocytes % (Manual) Eosinophils % (Manual) Basophils % (Manual) Metamyelocytes % Myelocytes % Promyelocytes % Blast Cells % Nucleated RBC % Seg Neutrophils # Man Band Neutrophils # Lymphocytes # (Manual) Abs React Lymphs (Man) Monocytes # (Manual) Eosinophils # (Manual) Basophils # (Manual) Metamyelocytes # Myelocytes # Promyelocytes # Blast Cells # WBC Morphology Hypersegmented Neuts Hyposegmented Neuts Hypogranular Neuts Smudge Cells Toxic Granulation Toxic Vacuolation Dohle Bodies Pelger-Huet Anomaly Shania Rods Platelet Estimate Clumped Platelets Plt Clumps, EDTA Large Platelets Giant Platelets Platelet Satelliting Plt Morphology Comment RBC Morphology Dimorphic RBCs Polychromasia Hypochromasia Poikilocytosis Anisocytosis Microcytosis Macrocytosis Spherocytes Pappenheimer Bodies Sickle Cells Target Cells Tear Drop Cells Ovalocytes Helmet Cells [place] Bodies [place] Cells Bite Cells Crenated Cell Elliptocytes Acanthocytes (Spur) Rouleaux Hemoglobin C Crystals Schistocytes Malaria parasites Warren Bodies Hem Pathologist Commnt Sodium Potassium Chloride Carbon Dioxide Anion Gap BUN Creatinine Estimated GFR BUN/Creatinine Ratio Glucose POC Glucose 158 H 123 H Lactic Acid 0.7 Calcium Total Bilirubin AST ALT Alkaline Phosphatase Total Protein Albumin Albumin/Globulin Ratio Lipase 12/16/16 12/16/16 12/17/16 20:33 21:35 00:41 WBC RBC Hgb Hct MCV MCH MCHC RDW Plt Count Add Manual Diff Total Counted Seg Neuts % (Manual) Band Neutrophils % Lymphocytes % (Manual) Reactive Lymphs % (Man) Monocytes % (Manual) Eosinophils % (Manual) Basophils % (Manual) Metamyelocytes % Myelocytes % Promyelocytes % Blast Cells % Nucleated RBC % Seg Neutrophils # Man Band Neutrophils # Lymphocytes # (Manual) Abs React Lymphs (Man) Monocytes # (Manual) Eosinophils # (Manual) Basophils # (Manual) Metamyelocytes # Myelocytes # Promyelocytes # Blast Cells # WBC Morphology Hypersegmented Neuts Hyposegmented Neuts Hypogranular Neuts Smudge Cells Toxic Granulation Toxic Vacuolation Dohle Bodies Pelger-Huet Anomaly Shania Rods Platelet Estimate Clumped Platelets Plt Clumps, EDTA Large Platelets Giant Platelets Platelet Satelliting Plt Morphology Comment RBC Morphology Dimorphic RBCs Polychromasia Hypochromasia Poikilocytosis Anisocytosis Microcytosis Macrocytosis Spherocytes Pappenheimer Bodies Sickle Cells Target Cells Tear Drop Cells Ovalocytes Helmet Cells [place] Bodies [place] Cells Bite Cells Crenated Cell Elliptocytes Acanthocytes (Spur) Rouleaux Hemoglobin C Crystals Schistocytes Malaria parasites Warren Bodies Hem Pathologist Commnt Sodium Potassium Chloride Carbon Dioxide Anion Gap BUN Creatinine Estimated GFR BUN/Creatinine Ratio Glucose POC Glucose 432 H Lactic Acid 2.1 H* 2.8 H* Calcium Total Bilirubin AST ALT Alkaline Phosphatase Total Protein Albumin Albumin/Globulin Ratio Lipase 12/17/16 12/17/16 12/17/16 06:16 06:16 06:16 WBC 6.6 RBC 2.77 L Hgb 8.4 L Hct 26.3 L MCV 95 D MCH 30 MCHC 32 RDW 15.0 Plt Count 306 Add Manual Diff Complete Total Counted 100 Seg Neuts % (Manual) 52.0 Band Neutrophils % 0 Lymphocytes % (Manual) 35.0 Reactive Lymphs % (Man) 0 Monocytes % (Manual) 8.0 H Eosinophils % (Manual) 4.0 Basophils % (Manual) 1.0 Metamyelocytes % 0 Myelocytes % 0 Promyelocytes % 0 Blast Cells % 0 Nucleated RBC % Not Reportable Seg Neutrophils # Man 3.4 Band Neutrophils # 0.0 Lymphocytes # (Manual) 2.3 Abs React Lymphs (Man) 0.0 Monocytes # (Manual) 0.5 Eosinophils # (Manual) 0.3 Basophils # (Manual) 0.1 Metamyelocytes # 0.0 Myelocytes # 0.0 Promyelocytes # 0.0 Blast Cells # 0.0 WBC Morphology Not Reportable Hypersegmented Neuts Not Reportable Hyposegmented Neuts Not Reportable Hypogranular Neuts Not Reportable Smudge Cells Not Reportable Toxic Granulation Not Reportable Toxic Vacuolation Not Reportable Dohle Bodies Not Reportable Pelger-Huet Anomaly Not Reportable Shania Rods Not Reportable Platelet Estimate Appears normal Clumped Platelets Few Plt Clumps, EDTA Not Reportable Large Platelets Not Reportable Giant Platelets Not Reportable Platelet Satelliting Not Reportable Plt Morphology Comment Not Reportable RBC Morphology Not Reportable Dimorphic RBCs Not Reportable Polychromasia Few Hypochromasia Not Reportable Poikilocytosis Not Reportable Anisocytosis 1+ Microcytosis Not Reportable Macrocytosis 1+ Spherocytes Not Reportable Pappenheimer Bodies Not Reportable Sickle Cells Not Reportable Target Cells 2+ Tear Drop Cells Not Reportable Ovalocytes Not Reportable Helmet Cells Not Reportable [place] Bodies Not Reportable [place] Rings Not Reportable [place] Cells Not Reportable Bite Cells Not Reportable Crenated Cell Not Reportable Elliptocytes Not Reportable Acanthocytes (Spur) Not Reportable Rouleaux Not Reportable Hemoglobin C Crystals Not Reportable Schistocytes Not Reportable Malaria parasites Not Reportable [place] Bodies Not Reportable Hem Pathologist Commnt No Sodium 134 L Potassium 3.9 Chloride 100.8 Carbon Dioxide 19 L Anion Gap 18 BUN 4 L Creatinine 0.4 L D Estimated GFR > 60 BUN/Creatinine Ratio 10.00 Glucose 136 H POC Glucose Lactic Acid 1.0 Calcium 8.2 L Total Bilirubin 10.7 H AST 61 H ALT 58 H Alkaline Phosphatase 592 H Total Protein 5.3 L Albumin 1.9 L Albumin/Globulin Ratio 0.6 Lipase 12/17/16 12/17/16 06:16 09:06 WBC RBC Hgb Hct MCV MCH MCHC RDW Plt Count Add Manual Diff Total Counted Seg Neuts % (Manual) Band Neutrophils % Lymphocytes % (Manual) Reactive Lymphs % (Man) Monocytes % (Manual) Eosinophils % (Manual) Basophils % (Manual) Metamyelocytes % Myelocytes % Promyelocytes % Blast Cells % Nucleated RBC % Seg Neutrophils # Man Band Neutrophils # Lymphocytes # (Manual) Abs React Lymphs (Man) Monocytes # (Manual) Eosinophils # (Manual) Basophils # (Manual) Metamyelocytes # Myelocytes # Promyelocytes # Blast Cells # WBC Morphology Hypersegmented Neuts Hyposegmented Neuts Hypogranular Neuts Smudge Cells Toxic Granulation Toxic Vacuolation Dohle Bodies Pelger-Huet Anomaly Shania Rods Platelet Estimate Clumped Platelets Plt Clumps, EDTA Large Platelets Giant Platelets Platelet Satelliting Plt Morphology Comment RBC Morphology Dimorphic RBCs Polychromasia Hypochromasia Poikilocytosis Anisocytosis Microcytosis Macrocytosis Spherocytes Pappenheimer Bodies Sickle Cells Target Cells Tear Drop Cells Ovalocytes Helmet Cells [place] Bodies [place] Cells Bite Cells Crenated Cell Elliptocytes Acanthocytes (Spur) Rouleaux Hemoglobin C Crystals Schistocytes Malaria parasites Warren Bodies Hem Pathologist Commnt Sodium Potassium Chloride Carbon Dioxide Anion Gap BUN Creatinine Estimated GFR BUN/Creatinine Ratio Glucose POC Glucose Lactic Acid 1.4 Calcium Total Bilirubin AST ALT Alkaline Phosphatase Total Protein Albumin Albumin/Globulin Ratio Lipase 7 L <DACIA PERALES D - Last Filed: 12/17/16 20:02> Objective - Constitutional Vitals: Temp Pulse Resp BP Pulse Ox 97.8 F 92 H 20 92/56 96 12/17/16 08:00 12/17/16 10:00 12/17/16 08:00 12/17/16 08:00 12/17/16 08:00 - Labs CBC & Chem 7: 12/17/16 06:16 12/17/16 06:16 Labs: Laboratory Results - last 24 hr 12/16/16 12/16/16 12/17/16 20:33 21:35 00:41 WBC RBC Hgb Hct MCV MCH MCHC RDW Plt Count Add Manual Diff Total Counted Seg Neuts % (Manual) Band Neutrophils % Lymphocytes % (Manual) Reactive Lymphs % (Man) Monocytes % (Manual) Eosinophils % (Manual) Basophils % (Manual) Metamyelocytes % Myelocytes % Promyelocytes % Blast Cells % Nucleated RBC % Seg Neutrophils # Man Band Neutrophils # Lymphocytes # (Manual) Abs React Lymphs (Man) Monocytes # (Manual) Eosinophils # (Manual) Basophils # (Manual) Metamyelocytes # Myelocytes # Promyelocytes # Blast Cells # WBC Morphology Hypersegmented Neuts Hyposegmented Neuts Hypogranular Neuts Smudge Cells Toxic Granulation Toxic Vacuolation Dohle Bodies Pelger-Huet Anomaly Shania Rods Platelet Estimate Clumped Platelets Plt Clumps, EDTA Large Platelets Giant Platelets Platelet Satelliting Plt Morphology Comment RBC Morphology Dimorphic RBCs Polychromasia Hypochromasia Poikilocytosis Anisocytosis Microcytosis Macrocytosis Spherocytes Pappenheimer Bodies Sickle Cells Target Cells Tear Drop Cells Ovalocytes Helmet Cells [place] Bodies [place] Cells Bite Cells Crenated Cell Elliptocytes Acanthocytes (Spur) Rouleaux Hemoglobin C Crystals Schistocytes Malaria parasites Warren Bodies Hem Pathologist Commnt Sodium Potassium Chloride Carbon Dioxide Anion Gap BUN Creatinine Estimated GFR BUN/Creatinine Ratio Glucose POC Glucose 432 H Lactic Acid 2.1 H* 2.8 H* Calcium Total Bilirubin AST ALT Alkaline Phosphatase Total Protein Albumin Albumin/Globulin Ratio Lipase 12/17/16 12/17/16 12/17/16 06:16 06:16 06:16 WBC 6.6 RBC 2.77 L Hgb 8.4 L Hct 26.3 L MCV 95 D MCH 30 MCHC 32 RDW 15.0 Plt Count 306 Add Manual Diff Complete Total Counted 100 Seg Neuts % (Manual) 52.0 Band Neutrophils % 0 Lymphocytes % (Manual) 35.0 Reactive Lymphs % (Man) 0 Monocytes % (Manual) 8.0 H Eosinophils % (Manual) 4.0 Basophils % (Manual) 1.0 Metamyelocytes % 0 Myelocytes % 0 Promyelocytes % 0 Blast Cells % 0 Nucleated RBC % Not Reportable Seg Neutrophils # Man 3.4 Band Neutrophils # 0.0 Lymphocytes # (Manual) 2.3 Abs React Lymphs (Man) 0.0 Monocytes # (Manual) 0.5 Eosinophils # (Manual) 0.3 Basophils # (Manual) 0.1 Metamyelocytes # 0.0 Myelocytes # 0.0 Promyelocytes # 0.0 Blast Cells # 0.0 WBC Morphology Not Reportable Hypersegmented Neuts Not Reportable Hyposegmented Neuts Not Reportable Hypogranular Neuts Not Reportable Smudge Cells Not Reportable Toxic Granulation Not Reportable Toxic Vacuolation Not Reportable Dohle Bodies Not Reportable Pelger-Huet Anomaly Not Reportable Shania Rods Not Reportable Platelet Estimate Appears normal Clumped Platelets Few Plt Clumps, EDTA Not Reportable Large Platelets Not Reportable Giant Platelets Not Reportable Platelet Satelliting Not Reportable Plt Morphology Comment Not Reportable RBC Morphology Not Reportable Dimorphic RBCs Not Reportable Polychromasia Few Hypochromasia Not Reportable Poikilocytosis Not Reportable Anisocytosis 1+ Microcytosis Not Reportable Macrocytosis 1+ Spherocytes Not Reportable Pappenheimer Bodies Not Reportable Sickle Cells Not Reportable Target Cells 2+ Tear Drop Cells Not Reportable Ovalocytes Not Reportable Helmet Cells Not Reportable [place] Bodies Not Reportable [place] Not Reportable [place] Cells Not Reportable Bite Cells Not Reportable Crenated Cell Not Reportable Elliptocytes Not Reportable Acanthocytes (Spur) Not Reportable Rouleaux Not Reportable Hemoglobin C Crystals Not Reportable Schistocytes Not Reportable Malaria parasites Not Reportable [place] Bodies Not Reportable Hem Pathologist Commnt No Sodium 134 L Potassium 3.9 Chloride 100.8 Carbon Dioxide 19 L Anion Gap 18 BUN 4 L Creatinine 0.4 L D Estimated GFR > 60 BUN/Creatinine Ratio 10.00 Glucose 136 H POC Glucose Lactic Acid 1.0 Calcium 8.2 L Total Bilirubin 10.7 H AST 61 H ALT 58 H Alkaline Phosphatase 592 H Total Protein 5.3 L Albumin 1.9 L Albumin/Globulin Ratio 0.6 Lipase 12/17/16 12/17/16 12/17/16 06:16 08:29 09:06 WBC RBC Hgb Hct MCV MCH MCHC RDW Plt Count Add Manual Diff Total Counted Seg Neuts % (Manual) Band Neutrophils % Lymphocytes % (Manual) Reactive Lymphs % (Man) Monocytes % (Manual) Eosinophils % (Manual) Basophils % (Manual) Metamyelocytes % Myelocytes % Promyelocytes % Blast Cells % Nucleated RBC % Seg Neutrophils # Man Band Neutrophils # Lymphocytes # (Manual) Abs React Lymphs (Man) Monocytes # (Manual) Eosinophils # (Manual) Basophils # (Manual) Metamyelocytes # Myelocytes # Promyelocytes # Blast Cells # WBC Morphology Hypersegmented Neuts Hyposegmented Neuts Hypogranular Neuts Smudge Cells Toxic Granulation Toxic Vacuolation Dohle Bodies Pelger-Huet Anomaly Shania Rods Platelet Estimate Clumped Platelets Plt Clumps, EDTA Large Platelets Giant Platelets Platelet Satelliting Plt Morphology Comment RBC Morphology Dimorphic RBCs Polychromasia Hypochromasia Poikilocytosis Anisocytosis Microcytosis Macrocytosis Spherocytes Pappenheimer Bodies Sickle Cells Target Cells Tear Drop Cells Ovalocytes Helmet Cells [place] Bodies [place] Cells Bite Cells Crenated Cell Elliptocytes Acanthocytes (Spur) Rouleaux Hemoglobin C Crystals Schistocytes Malaria parasites Warren Bodies Hem Pathologist Commnt Sodium Potassium Chloride Carbon Dioxide Anion Gap BUN Creatinine Estimated GFR BUN/Creatinine Ratio Glucose POC Glucose 192 H Lactic Acid 1.4 Calcium Total Bilirubin AST ALT Alkaline Phosphatase Total Protein Albumin Albumin/Globulin Ratio Lipase 7 L
== END 2016-12-17 17:09 | disposition home or self-care (01) | DRG 637 ==
LOC: ED 08:17 → 4A 12:35
PROVIDERS: ADMIT Family Medicine; ATTEND Internal Medicine
PROC: 0DJ08ZZ Inspection of Upper Intestinal Tract, Via Natural or Artificial Opening Endoscopic (ICD-10-PCS; principal; 2016-12-16)
DX: E11.00 Type 2 diabetes mellitus with hyperosmolarity without nonketotic hyperglycemic-hyperosmolar coma (NKHHC) (principal); G93.41 Metabolic encephalopathy; K83.1 Obstruction of bile duct; K85.20 Alcohol induced acute pancreatitis without necrosis or infection; E87.2 Acidosis; K86.3 Pseudocyst of pancreas; K75.9 Inflammatory liver disease, unspecified; E86.0 Dehydration; F10.10 Alcohol abuse, uncomplicated; E80.6 Other disorders of bilirubin metabolism; K86.89 Other specified diseases of pancreas; F17.200 Nicotine dependence, unspecified, uncomplicated; I10 Essential (primary) hypertension; Z82.49 Family history of ischemic heart disease and other diseases of the circulatory system; Z88.8 Allergy status to other drugs, medicaments and biological substances; Z90.710 Acquired absence of both cervix and uterus; Z71.6 Tobacco abuse counseling
CPT/HCPCS: 36415; 70450; 71010; 74177; 74181; 80048; 80053; 80074; 80320; 81001; 82010; 82140; 82805; 82962; 83690; 83735; 84100; 84484; 85007; 85025; 85610; 87040; 90686; 90732; 93005; 93010; 96361; 96372; 96374; G0480; J1650; J1815; J1818; J2543; J2704; J3370; J7030; J7050; Q9967